=== PATIENT | female | born 1980 | race Caucasian/White ===

== ENCOUNTER 2016-07-05 10:55 | Emergency (ER) | payer OTHER ==
[~2016-07-05 10:55] MED LIST: ACID REDUCER150 MG PO; BYETTA SC; COLACE100 MG PO; GLYBURIDE5 MG PO; HYCET1 ML PO; LAMICTAL100 MG PO; LANTUS SOL100 UNITS/ SC; LOVENOX40 MG/0.4 SC; MULTIPLE VITAMIN PO; OSTEO BI-FLEX R1 TAB PO; SYNTHROID300 MCG PO; [UNRECOGNIZED DRUG - OTHER] PO
--- NOTE | 2016-07-05 13:08 | ED CLINICAL REPORT ---
Clinical Report - Physicians/Mid Levels [facility] [address] [place] [address] 07/05/2016 10:56 Patient: FLASH CRANDALL Time Seen: 12:04; initial patient contact. Arrived- By private vehicle. Historian- patient. HISTORY OF PRESENT ILLNESS Chief Complaint: BACK PAIN. It is described as being in the area of the left lower lumbar spine, lower lumbar spine and right lower lumbar spine. Onset- about 3 weeks ago. Similar symptoms previously: Several times. Recent medical care: Not recently seen/assessed. REVIEW OF SYSTEMS No fever, chills, abdominal pain, numbness or weakness. She has had back pain. No difficulty walking. All systems otherwise negative, except as recorded above. PAST HISTORY Myofascial Strain. Fall. Contusion. Cervical Strain. Tetanus Status. Lumbar Strain. LNMP - Last Normal Menstrual Period. CHAND. Bipolar Disorder. Hypothyroidism. Back Pain. Diabetes Mellitus. --11:37 Roberto Burgos R.N. ADDITIONAL SURGERIES: Carpal Tunnel Surgery. . Gallbladder Surgery. Tonsillectomy. Medications: PROzac Oral. Ranitidine HCl Oral. GlyBURIDE Oral. Byetta 10 MCG Pen Subcutaneous. Insulin levamir 15units at night . LamoTRIgine Oral 400mg am, 200 mg pm , daily. MetFORMIN HCl Oral 1000mg, 2x a day. Synthroid Oral 275mcg, daily. Vits. Allergies: Oxycodone. SOCIAL HISTORY Smoker - current status unknown. Occasional alcohol use. History of drug use: marijuana. ADDITIONAL NOTES The nursing notes have been reviewed with agreement regarding the chief complaint, PMH and patient medications and allergies. PHYSICAL EXAM Vital Signs: 07/05/2016 11:34 BP: 139/72. HR: 86. RR: 18. O2 saturation: 99%. Temp: 98.2 F. Have been reviewed as normal. Appearance: Alert. No acute distress. Back: Mild muscle spasm of the right and left posterior back. Mild soft tissue tenderness in the right upper, mid and lower and left upper, mid and lower lumbar area. Limited ROM in the back- in the lumbar spine: decreased flexion and extension. No vertebral point tenderness or CVA tenderness. Neuro: Oriented X 3. Mood/affect normal. No motor deficit. No sensory deficit. Straight leg raising: negative on the right and negative on the left. Reflexes normal. PROGRESS AND PROCEDURES Course of Care: 07/05/2016 11:34 BP: 139/72. HR: 86. RR: 18. O2 saturation: 99%. Temp: 98.2 F. Vital Signs: have been reviewed as normal. Disposition: Discharged home in good and improved condition. Condition: good. CLINICAL IMPRESSION Acute lumbar strain. INSTRUCTIONS Your Current Medications: CONTINUE TAKING THE FOLLOWING MEDICATIONS: Byetta 10 MCG Pen Subcutaneous. GlyBURIDE Oral. Insulin levamir 15units at night *. LamoTRIgine Oral : 400mg am, 200 mg pm daily. MetFORMIN HCl Oral : 1000mg 2x a day. PROzac Oral. Ranitidine HCl Oral. Synthroid Oral : 275mcg daily. Vits*. Prescription Medications: Baclofen 20 mg: take 1 orally every 8 hours. Dispense thirty (30). No refills. Diclofenac 50 mg tablets: take 1 tablet orally every 8 hours as needed for pain or stiffness. Dispense twenty (20). No refill. Follow-up: Follow up with your doctor in about three days. Call for an appointment. Screening today revealed the patient's blood pressure to be in the pre-hypertensive range. The patient should follow up with a primary care provider for blood pressure management. (Electronically signed by Guy Crandall Dr. 07/05/2016 22:07)
--- NOTE | 2016-07-05 13:08 | ED ORDER SUMMARY ---
..... Patient: ERICA CRANDALLBRII Goldstein OrderSheet [facility] VisitID: [id number] [address] [place] [address] 36y, F Registration Date/Time: 07/05/2016 ORDER SHEET Weight: 199.5 kg (stated) Allergies: Oxycodone GENERAL ORDERS: MEDICATION ORDERS: Toradol IM 60 mg (NOW) (12:36 07/05/2016 Julius Lozoya) (13:27 LWhalen R.N.) IV FLUIDS: ORDER SHEET NOTES: [Electronically signed by Tara Gauthier (13:29 07/05/2016)] [Electronically signed by Guy Crandall Dr. (22:07 07/05/2016)] [Electronically locked/signed by Tara Gauthier (13:29 07/05/2016)]
--- NOTE | 2016-07-05 13:08 | ED NURSING NOTES ---
Clinical Report - Nurses [facility] [address] [place] [address] 07/05/2016 10:56 Patient: FLASH CRANDALL TRIAGE Triage time 11:34 Jul 05 2016. Acuity: LEVEL 3. Chief Complaint: BACK PAIN. FAUSTINA COMA SCORE: Faustina Coma Scale: 15- eyes open spontaneously (4); best verbal response- oriented x 4 (5); best motor response- obeys commands (6). --11:41 Roberto Burgos R.N. 11:34 07/05/16. BP: 139/72. HR: 86. RR: 18. O2 saturation: 99%. Temp: 98.2 F. Pain level now 03/25. --11:41 Roberto Burgos R.N. Weight: 199.5 kg stated. Height/Length: 67 inches Per Patient. BMI: 69. --11:39 Roberto Burgos R.N. Medications Insulin levamir 15units at night . LamoTRIgine Oral 400mg am, 200 mg pm , daily. MetFORMIN HCl Oral 1000mg, 2x a day. Synthroid Oral 275mcg, daily. Vits. --11:36 Roberto Burgos R.N. Byetta 10 MCG Pen Subcutaneous. --11:36 Roberto Burgos R.N. GlyBURIDE Oral. --11:36 Roberto Burgos R.N. Ranitidine HCl Oral. --11:37 Roberto Burgos R.N. PROzac Oral. --11:41 Roberto Burgos R.N. Allergies Oxycodone. --11:37 Roberto Burgos R.N. History Arrived by private vehicle. Historian: patient. Accompanied by family. Primary physician (Radha Dominique). Onset. (2 weeks ago). She has had mild trouble walking. No history of recent trauma. No numbness, weakness, tingling, fever or extremity pain. 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 (excedrine, midol, aspertaine with lidocaine). PAST MEDICAL HX: Tetanus status: up-to-date. SOCIAL HX: Smoker- current status unknown. Occasional alcohol use; consumes one glass of wine. History of drug use: marijuana. SELF HARM ASSESSMENT: A self harm assessment was performed. The patient answered "no" to the question "Have you recently felt down, depressed, or hopeless?" and "Do you have thoughts of harming or killing yourself?". FALL RISK ASSESSMENT: Fall risk assessment completed. No fall risk identified. NUTRITIONAL RISK ASSESSMENT: The nutritional risk assessment revealed no deficiencies. FUNCTIONAL ASSESSMENT: Functional assessment: no impairments noted. LEARNING NEEDS ASSESSMENT: The learning needs assessment revealed no barriers. ABUSE ASSESSMENT: Abuse assessment: (yes) The patient was asked "Do you feel safe in your home?". SKIN INTEGRITY ASSESSMENT: Skin integrity risk assessment completed. No skin integrity risk identified. --11:41 Roberto Burgos R.N. PROBLEMS: Myofascial Strain. Fall. Contusion. Cervical Strain. Tetanus Status. Lumbar Strain. LNMP - Last Normal Menstrual Period. CHAND. Bipolar Disorder. Hypothyroidism. Back Pain. Diabetes Mellitus. --11:37 Roberto Burgos R.N. ADDITIONAL SURGERIES: Carpal Tunnel Surgery. . Gallbladder Surgery. Tonsillectomy. --11:37 Roberto Burgos R.N. Interventions ID and allergy band on patient. --11:41 Roberto Burgos R.N. PHYSICAL ASSESSMENT Ambulatory to room. GENERAL / NEURO / PSYCH: Alert. Oriented X 4. Appears in pain. RESPIRATORY: Respirations not labored. Chest nontender. Breath sounds within normal limits. CVS: Normal heart rate and rhythm. Capillary refill less than 2 seconds. GI / : Abdomen soft and nontender. Bowel sounds within normal limits. EXTREMITIES: Sensation intact in extremities. ROM of extremities within normal limits. ( States limited ROM r/t pain). BACK: Normal inspection of the neck and back. ROM of neck and back within normal limits. --11:42 Roberto Burgos R.N. NURSING PROGRESS NOTES The plan of care for this patient has been created. Monitoring of patient in place. Cold pack applied. Head of bed elevated (90). Reassurance given. Call light placed in reach. Side rails up. Bed placed in lowest position. Brakes of bed on. --11:42 Roberto Burgos R.N. 13:00 07/05/2016 Toradol (Ketorolac Tromethamine) IM 60 mg given. Given in the right gluteus dana. Allergies verified and confirmed 5 rights. --13:27 Roberto Burgos R.N. DISPOSITION / DISCHARGE Departure time: 1330. No learning barriers present. Discharge instructions provided and reviewed with the patient. Reviewed medication(s). Patient and spouse verbalized understanding. Written instructions provided in Bulgarian. The patient was discharged by the physician. She was discharged home and accompanied by spouse. She left the Emergency Department ambulatory and via private vehicle. Spouse driving. --13:29 Tara Gauthier. Locked/Released at 07/05/2016 13:29 by Tara Gauthier,
--- NOTE | 2016-07-05 13:08 | ED ORDER SUMMARY ---
..... Patient: ERICA CRANDALLBRII Goldstein OrderSheet [facility] VisitID: [id number] [address] [place] [address] 36y, F Registration Date/Time: 07/05/2016 ORDER SHEET Weight: 199.5 kg (stated) Allergies: Oxycodone GENERAL ORDERS: MEDICATION ORDERS: Toradol IM 60 mg (NOW) (12:36 07/05/2016 Julius Lozoya) (13:27 LWhalen R.N.) IV FLUIDS: ORDER SHEET NOTES: [Electronically signed by Tara Gauthier (13:29 07/05/2016)] [Electronically signed by Guy Crandall Dr. (22:07 07/05/2016)] [Electronically locked/signed by Tara Gauthier (13:29 07/05/2016)]
--- NOTE | 2016-07-05 13:08 | ED NURSING NOTES ---
Clinical Report - Nurses [facility] [address] [place] [address] 07/05/2016 10:56 Patient: FLASH CRANDALL TRIAGE Triage time 11:34 Jul 05 2016. Acuity: LEVEL 3. Chief Complaint: BACK PAIN. FAUSTINA COMA SCORE: Faustina Coma Scale: 15- eyes open spontaneously (4); best verbal response- oriented x 4 (5); best motor response- obeys commands (6). --11:41 Roberto Burgos R.N. 11:34 07/05/16. BP: 139/72. HR: 86. RR: 18. O2 saturation: 99%. Temp: 98.2 F. Pain level now 03/25. --11:41 Roberto Burgos R.N. Weight: 199.5 kg stated. Height/Length: 67 inches Per Patient. BMI: 69. --11:39 Roberto Burgos R.N. Medications Insulin levamir 15units at night . LamoTRIgine Oral 400mg am, 200 mg pm , daily. MetFORMIN HCl Oral 1000mg, 2x a day. Synthroid Oral 275mcg, daily. Vits. --11:36 Roberto Burgos R.N. Byetta 10 MCG Pen Subcutaneous. --11:36 Roberto Burgos R.N. GlyBURIDE Oral. --11:36 Roberto Burgos R.N. Ranitidine HCl Oral. --11:37 Roberto Burgos R.N. PROzac Oral. --11:41 Roberto Burgos R.N. Allergies Oxycodone. --11:37 Roberto Burgos R.N. History Arrived by private vehicle. Historian: patient. Accompanied by family. Primary physician (Radha Dominique). Onset. (2 weeks ago). She has had mild trouble walking. No history of recent trauma. No numbness, weakness, tingling, fever or extremity pain. 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 (excedrine, midol, aspertaine with lidocaine). PAST MEDICAL HX: Tetanus status: up-to-date. SOCIAL HX: Smoker- current status unknown. Occasional alcohol use; consumes one glass of wine. History of drug use: marijuana. SELF HARM ASSESSMENT: A self harm assessment was performed. The patient answered "no" to the question "Have you recently felt down, depressed, or hopeless?" and "Do you have thoughts of harming or killing yourself?". FALL RISK ASSESSMENT: Fall risk assessment completed. No fall risk identified. NUTRITIONAL RISK ASSESSMENT: The nutritional risk assessment revealed no deficiencies. FUNCTIONAL ASSESSMENT: Functional assessment: no impairments noted. LEARNING NEEDS ASSESSMENT: The learning needs assessment revealed no barriers. ABUSE ASSESSMENT: Abuse assessment: (yes) The patient was asked "Do you feel safe in your home?". SKIN INTEGRITY ASSESSMENT: Skin integrity risk assessment completed. No skin integrity risk identified. --11:41 Roberto Burgos R.N. PROBLEMS: Myofascial Strain. Fall. Contusion. Cervical Strain. Tetanus Status. Lumbar Strain. LNMP - Last Normal Menstrual Period. CHAND. Bipolar Disorder. Hypothyroidism. Back Pain. Diabetes Mellitus. --11:37 Roberto Burgos R.N. ADDITIONAL SURGERIES: Carpal Tunnel Surgery. . Gallbladder Surgery. Tonsillectomy. --11:37 Roberto Burgos R.N. Interventions ID and allergy band on patient. --11:41 Roberto Burgos R.N. PHYSICAL ASSESSMENT Ambulatory to room. GENERAL / NEURO / PSYCH: Alert. Oriented X 4. Appears in pain. RESPIRATORY: Respirations not labored. Chest nontender. Breath sounds within normal limits. CVS: Normal heart rate and rhythm. Capillary refill less than 2 seconds. GI / : Abdomen soft and nontender. Bowel sounds within normal limits. EXTREMITIES: Sensation intact in extremities. ROM of extremities within normal limits. ( States limited ROM r/t pain). BACK: Normal inspection of the neck and back. ROM of neck and back within normal limits. --11:42 Roberto Burgos R.N. NURSING PROGRESS NOTES The plan of care for this patient has been created. Monitoring of patient in place. Cold pack applied. Head of bed elevated (90). Reassurance given. Call light placed in reach. Side rails up. Bed placed in lowest position. Brakes of bed on. --11:42 Roberto Burgos R.N. 13:00 07/05/2016 Toradol (Ketorolac Tromethamine) IM 60 mg given. Given in the right gluteus dana. Allergies verified and confirmed 5 rights. --13:27 Roberto Burgos R.N. DISPOSITION / DISCHARGE Departure time: 1330. No learning barriers present. Discharge instructions provided and reviewed with the patient. Reviewed medication(s). Patient and spouse verbalized understanding. Written instructions provided in Icelandic. The patient was discharged by the physician. She was discharged home and accompanied by spouse. She left the Emergency Department ambulatory and via private vehicle. Spouse driving. --13:29 Tara Gauthier. Locked/Released at 07/05/2016 13:29 by Tara Gauthier,
--- NOTE | 2016-07-05 22:07 | ED MAR SUMMARY ---
..... Medication Administration Record [facility] [address] [place] [address] Patient: FLASH CRANDALL Visit ID: [id number] 36y, F Weight: 199.5 kg Height/Length: 67 in BMI: 69 ALLERGIES: Oxycodone Given 13:00 07/05/2016 Roberto Burgos R.N. Medication Administered: TORADOL [IM] (KETOROLAC TROMETHAMINE), Dose: 60 mg IM. Medication Ordered: Toradol IM 60 mg (NOW).
--- NOTE | 2016-07-05 22:07 | ED MED RECONCILIATION SUMMARY ---
Patient: ERICA ZAMANBRII Goldstein Medication Reconciliation Report [facility] VisitID: [id number] [place] [address] 36y, F Registration Date/Time: 07/05/2016 Weight: 199.5 kg Height/Length: 67 in. BMI: 69.0 ALLERGIES: Oxycodone The patient's Home Medications are listed below: CONTINUE TAKING THE FOLLOWING MEDICATIONS: Byetta 10 MCG Pen Subcutaneous GlyBURIDE Oral Insulin levamir 15units at night LamoTRIgine Oral 400mg am, 200 mg pm , daily MetFORMIN HCl Oral 1000mg, 2x a day PROzac Oral Ranitidine HCl Oral Synthroid Oral 275mcg, daily Vits The source(s) of the original Home Medication information: Not obtained. The following Medications were given to the patient in the Emergency Department: Toradol [IM] IM 60 mg, administered: 07/05/2016 1:00:00 PM The following Medications were prescribed to the patient: Baclofen 20 mg: take 1 orally every 8 hours. Dispense thirty (30). No refills. -- Guy Zaman Dr. Diclofenac 50 mg tablets: take 1 tablet orally every 8 hours as needed for pain or stiffness. Dispense twenty (20). No refill. -- Guy Zaman Dr.
--- NOTE | 2016-07-05 22:07 | ED DISCHARGE INSTRUCTIONS ---
Patient: FLASH ZAMAN General Instructions [facility] VisitID: [id number] [place] [address] 36y, F Registration Date/Time: 07/05/2016 Acute lumbar strain. INSTRUCTIONS Your Current Medications: CONTINUE TAKING THE FOLLOWING MEDICATIONS: Byetta 10 MCG Pen Subcutaneous. GlyBURIDE Oral. Insulin levamir 15units at night *. LamoTRIgine Oral : 400mg am, 200 mg pm daily. MetFORMIN HCl Oral : 1000mg 2x a day. PROzac Oral. Ranitidine HCl Oral. Synthroid Oral : 275mcg daily. Vits*. Prescription Medications: Baclofen 20 mg: take 1 orally every 8 hours. Dispense thirty (30). No refills. Diclofenac 50 mg tablets: take 1 tablet orally every 8 hours as needed for pain or stiffness. Dispense twenty (20). No refill. Follow-up: Follow up with your doctor in about three days. Call for an appointment. Screening today revealed the patient's blood pressure to be in the pre-hypertensive range. The patient should follow up with a primary care provider for blood pressure management. ADDITIONAL INFORMATION Sciatica Sciatica ("Lumbar Radiculopathy") causes a pain that spreads from the lower back down into the buttock, hip and leg. Sometimes leg pain can occur without any back pain. Sciatica is due to irritation or pressure on a spinal nerve as it comes out of the spinal canal. This is most often due to a bulge or rupture of a nearby spinal disk (the cartilage cushion between each spinal bone), which presses on a nearby nerve. Other causes include spinal stenosis (narrowing of the spinal canal) and spasm of the pyriform muscle (a muscle in the buttocks that the sciatic nerve passes through). Sciatica may begin after a sudden twisting/bending force (such as in a car accident), or sometimes after a simple awkward movement. In either case, muscle spasm is commonly present and contributes to the pain. The diagnosis of sciatica is made from the symptoms and physical exam. Unless you had a physical injury (such as a car accident or fall), X-rays are usually not ordered for the initial evaluation of sciatica because the nerves and disks cannot be seen on an x-ray. If signs of a compressed nerve are present (for example, loss of tendon reflex or strength in the leg), an MRI (magnetic resonance imaging) scan will need to be scheduled as an outpatient. Most sciatica (80-90%) gets better with medicine, exercise, physical therapy. If symptoms continue after at least three months of medical treatment, surgery may be considered. Home Care: You may need to stay in bed the first few days. But, as soon as possible, begin sitting or walking to avoid problems with prolonged bed rest. When in bed, try to find a position of comfort. A firm mattress is best. Try lying flat on your back with pillows under your knees. You can also try lying on your side with your knees bent up towards your chest and a pillow between your knees. Avoid prolonged sitting. This puts more stress on the lower back than standing or walking. Some persons find relief with heat (hot shower, hot bath or heating pad) and massage, while others prefer cold packs (crushed or cubed ice in a plastic bag, wrapped in a towel). Try both and use the method that feels best for 20 minutes several times a day. You may use acetaminophen (Tylenol) or ibuprofen (Motrin, Advil) to control pain, unless another pain medicine was prescribed. [ NOTE: If you have chronic liver or kidney disease or ever had a stomach ulcer or GI bleeding, talk with your doctor before using these medicines.] Be aware of safe lifting methods and do not lift anything over 15 pounds until all the pain is gone. Follow Up with your doctor or this facility if your symptoms do not start to improve after one week. Physical therapy or further testing may be needed. [NOTE: If X-rays were taken, they will be reviewed by a radiologist. You will be notified of any new findings that may affect your care.] Get Prompt Medical Attention if any of the following occur: Pain becomes worse, not controlled by the prescribed medicine Weakness or numbness in one or both legs Numbness in the groin, genital area Loss of bowel or bladder control You have been given the following additional information: Back Pain W/ Sciatica (Electronically signed by Guy Zaman Dr. 07/05/2016 22:07)
--- NOTE | 2016-07-05 22:07 | ED MAR SUMMARY ---
..... Medication Administration Record [facility] [address] [place] [address] Patient: FLASH CRANDALL Visit ID: [id number] 36y, F Weight: 199.5 kg Height/Length: 67 in BMI: 69 ALLERGIES: Oxycodone Given 13:00 07/05/2016 Roberto Burgos R.N. Medication Administered: TORADOL [IM] (KETOROLAC TROMETHAMINE), Dose: 60 mg IM. Medication Ordered: Toradol IM 60 mg (NOW).
--- NOTE | 2016-07-05 22:07 | ED MED RECONCILIATION SUMMARY ---
Patient: ERICA ZAMANBRII Goldstein Medication Reconciliation Report [facility] VisitID: [id number] [place] [address] 36y, F Registration Date/Time: 07/05/2016 Weight: 199.5 kg Height/Length: 67 in. BMI: 69.0 ALLERGIES: Oxycodone The patient's Home Medications are listed below: CONTINUE TAKING THE FOLLOWING MEDICATIONS: Byetta 10 MCG Pen Subcutaneous GlyBURIDE Oral Insulin levamir 15units at night LamoTRIgine Oral 400mg am, 200 mg pm , daily MetFORMIN HCl Oral 1000mg, 2x a day PROzac Oral Ranitidine HCl Oral Synthroid Oral 275mcg, daily Vits The source(s) of the original Home Medication information: Not obtained. The following Medications were given to the patient in the Emergency Department: Toradol [IM] IM 60 mg, administered: 07/05/2016 1:00:00 PM The following Medications were prescribed to the patient: Baclofen 20 mg: take 1 orally every 8 hours. Dispense thirty (30). No refills. -- Guy Zaman Dr. Diclofenac 50 mg tablets: take 1 tablet orally every 8 hours as needed for pain or stiffness. Dispense twenty (20). No refill. -- Guy Zaman Dr.
== END 2016-07-05 13:30 | disposition home or self-care (01) ==
LOC: ED SRH 10:55
DX: S39.012A Strain of muscle, fascia and tendon of lower back, initial encounter (principal); E11.9 Type 2 diabetes mellitus without complications; E03.9 Hypothyroidism, unspecified; X58.XXXA Exposure to other specified factors, initial encounter; Y93.9 Activity, unspecified; Y92.9 Unspecified place or not applicable; Y99.9 Unspecified external cause status; Z88.5 Allergy status to narcotic agent; Z79.4 Long term (current) use of insulin; Z79.899 Other long term (current) drug therapy

== ENCOUNTER 2016-07-09 22:23 | Emergency (ER) | payer OTHER ==
--- NOTE | 2016-07-10 00:01 | ED CLINICAL REPORT ---
Clinical Report - Physicians/Mid Levels [facility] [address] [place] [address] 07/09/2016 22:23 Patient: FLASH CRANDALL Time Seen: 23:12. Arrived- By private vehicle. Historian- patient. HISTORY OF PRESENT ILLNESS Chief Complaint: BACK PAIN. It is described as being severe and in the area of the lower lumbar spine and radiating to the right thigh. Onset- about 5 days ago and it is still present. It was abrupt in onset and has been constant. No bladder dysfunction, bowel dysfunction, sensory loss or motor loss. Patient has had an injury. REVIEW OF SYSTEMS No chills, fever, calf pain, chest pain or cough. No difficulty breathing, pedal edema, palpitations, abdominal pain or constipation. No diarrhea, nausea, vomiting or urinary problems. All systems otherwise negative, except as recorded above. PAST HISTORY PCP - Maliha Dominique. Problems: Myofascial Strain. Fall. Contusion. Cervical Strain. Tetanus Status. Lumbar Strain. CHAND. Bipolar Disorder. Hypothyroidism. Back Pain. Diabetes Mellitus. Additional Surgeries: Carpal Tunnel Surgery. . Gallbladder Surgery. Tonsillectomy. Medications: Byetta 10 MCG Pen Subcutaneous. GlyBURIDE Oral. Insulin levamir 15units at night . LamoTRIgine Oral 400mg am, 200 mg pm , daily. MetFORMIN HCl Oral 1000mg, 2x a day. PROzac Oral. Ranitidine HCl Oral. Synthroid Oral 275mcg, daily. Vits. Allergies: Oxycodone.(itching). SOCIAL HISTORY Never smoker. History of occasional drug use: marijuana. No alcohol use. FAMILY HISTORY Heart disease in multiple family members, first-degree relative (mother), grandparent. multiple family members with thyroid disease. ADDITIONAL NOTES The nursing notes have been reviewed. PHYSICAL EXAM Vital Signs: Have been reviewed. Appearance: Alert. Eyes: Pupils equal, round and reactive to light. Neck: Painless ROM. CVS: Heart sounds normal. Respiratory: No respiratory distress. Breath sounds normal. Abdomen: No visible injury. Soft and nontender. Bowel sounds normal. No organomegaly. No mass. Back: Muscle spasm of the back. Limited ROM in the back. No vertebral point tenderness or CVA tenderness. Skin: Skin warm and dry. Normal skin color. Normal skin turgor. Extremities: Extremities exhibit normal ROM. Extremities nontender. No calf tenderness. PROGRESS AND PROCEDURES Course of Care: Patient is stable. Patient/family counseled. Old medical records reviewed. Disposition: Discharged. Condition: stable. CLINICAL IMPRESSION Acute right sided sciatica with low back pain. INSTRUCTIONS Apply ice for 20 minutes four times a day. Don't apply ice directly to skin and don't use while asleep. No driving or operating machinery while taking medication. No lifting greater than 5 lbs, no bending or stooping or no prolonged sitting until well. No strenuous activity. Do not work tomorrow, for one day. (you may continue with the use of diclofenac but stop the use of baclofen as discussed.). Your Current Medications: CONTINUE TAKING THE FOLLOWING MEDICATIONS: Byetta 10 MCG Pen Subcutaneous. GlyBURIDE Oral. Insulin levamir 15units at night *. LamoTRIgine Oral : 400mg am, 200 mg pm daily. MetFORMIN HCl Oral : 1000mg 2x a day. PROzac Oral. Ranitidine HCl Oral. Synthroid Oral : 275mcg daily. Vits*. Prescription Medications: Ultram 50 mg: take 1-2 orally every 6 hours as needed for pain. Dispense ten (10). No refills. Substitution is permissible. Follow-up: Follow up with your doctor tomorrow. Call for an appointment. Understanding of the discharge instructions verbalized by patient. (Electronically signed by Jean Claude Gill MD 07/16/2016 21:19)
--- NOTE | 2016-07-10 00:01 | ED NURSING NOTES ---
Clinical Report - Nurses [facility] [address] [place] [address] 07/09/2016 22:23 Patient: FLASH CRANDALL TRIAGE Triage time 22:51. Chief Complaint: BACK PAIN and (right leg pain). Alert. No acute distress. --22:57 Lyssa Sinclair R.N. 22:51 07/09/16. BP: 131/80. HR: 86. RR: 18. O2 saturation: 98% on room air. Temp: 97.9 F (oral). Garcia-Au pain scale: 6/10. --22:57 Lyssa Sinclair R.N. Weight: 199.5 kg stated. Height/Length: 67 inches Per Patient. BMI: 69. --22:57 Lyssa Sinclair R.N. Medications Byetta 10 MCG Pen Subcutaneous. GlyBURIDE Oral. Insulin levamir 15units at night . LamoTRIgine Oral 400mg am, 200 mg pm , daily. MetFORMIN HCl Oral 1000mg, 2x a day. PROzac Oral. Ranitidine HCl Oral. Synthroid Oral 275mcg, daily. Vits. --22:55 Lyssa Sinclair R.N. Allergies Oxycodone.(itching) --22:55 Lyssa Sinclair R.N. History Arrived by private vehicle. Historian: patient. Primary physician (Maliha Dominique). Onset. (about 4 days ago). No history of recent trauma. Treatment CREAM BEATER: (diflucan & Baclofen last dose 3 hours CREAM BEATER). PAST MEDICAL HX: Tetanus status: up-to-date. Immunizations: up-to-date. Last normal menstrual period was 1 week ago. No contraception. SOCIAL HX: Never smoker. Occasional alcohol use. History of occasional drug use: marijuana. FUNCTIONAL ASSESSMENT: Functional assessment: no impairments noted. --22:57 Lyssa Sinclair R.N. PROBLEMS: Myofascial Strain. Fall. Contusion. Cervical Strain. Tetanus Status. Lumbar Strain. LNMP - Last Normal Menstrual Period. CHAND. Bipolar Disorder. Hypothyroidism. Back Pain. Diabetes Mellitus. --:55 Lyssa Sinclair R.N. ADDITIONAL SURGERIES: Carpal Tunnel Surgery. . Gallbladder Surgery. Tonsillectomy. --:55 Lyssa Sinclair R.N. Interventions ID band on patient. --22:57 Lyssa Sinclair R.N. PHYSICAL ASSESSMENT Ambulatory to room. GENERAL / NEURO / PSYCH: Alert. Oriented X 4. Appears in pain. RESPIRATORY: Respirations not labored. CVS: Capillary refill less than 2 seconds. --22:58 Lyssa Sinclair R.N. NURSING PROGRESS NOTES Head of bed elevated. Two patient identifiers checked. Call light placed in reach. Side rails up x 1. Bed placed in lowest position. Brakes of bed on. --:58 Lyssa Sinclair R.N. Patient ready for evaluation- chart flagged. --22:58 Lyssa Sinclair R.N. ( pt ambulates to restroom to obtain urine sample for POC preg). --23:07 Lyssa Sinclair R.N. Urine test negative. erosion control specialist check passed. --23:12 Lyssa Sinclair R.N. DISPOSITION / DISCHARGE Condition at departure: stable. No learning barriers present. Discharge instructions provided and reviewed with the patient. Reviewed medication(s) side effects, precautions, dosing and course information. Prescription(s) given to the patient. Patient verbalized understanding. Written instructions provided in Micronesian. The patient was discharged home and accompanied by family. She left the Emergency Department ambulatory and via private vehicle. Patient driving. --00:36 Lyssa Sinclair R.N. 00:35 07/10/16. BP: deferred. HR: deferred. RR: 17 (regular and unlabored). O2 saturation: deferred. Temp: deferred. Garcia-Au pain scale: 4/10. --00:36 Lyssa Sinclair R.N. Locked/Released at 07/10/2016 0:37 by Lyssa Sinclair R.N.
--- NOTE | 2016-07-10 00:01 | ED ORDER SUMMARY ---
..... Patient: FLASH CRANDALL OrderSheet [facility] VisitID: [id number] [address] [place] [address] 36y, F Registration Date/Time: 07/09/2016 ORDER SHEET Weight: 199.5 kg (stated) Allergies: Oxycodone GENERAL ORDERS: POC - Urine hCG (23:08 07/09/2016 RCollilana R.NEnmanuel verbal order read back to Tahir BORJA) (Ack 23:08 RCollier R.N.) (0:36 RCollier R.N.) MEDICATION ORDERS: IV FLUIDS: ORDER SHEET NOTES: [Electronically signed by Lyssa Sinclair R.N. (00:37 07/10/2016)] [Electronically signed by Jean Claude Gill MD (21:19 07/16/2016)] [Electronically locked/signed by Lyssa Sinclair R.N. (00:37 07/10/2016)]
--- NOTE | 2016-07-10 00:01 | ED ORDER SUMMARY ---
..... Patient: FLASH CRANDALL OrderSheet [facility] VisitID: [id number] [address] [place] [address] 36y, F Registration Date/Time: 07/09/2016 ORDER SHEET Weight: 199.5 kg (stated) Allergies: Oxycodone GENERAL ORDERS: POC - Urine hCG (23:08 07/09/2016 RCollilana R.NEnmanuel verbal order read back to Tahir BORJA) (Ack 23:08 RCollier R.N.) (0:36 RCollier R.N.) MEDICATION ORDERS: IV FLUIDS: ORDER SHEET NOTES: [Electronically signed by Lyssa Sinclair R.N. (00:37 07/10/2016)] [Electronically signed by Jean Claude Gill MD (21:19 07/16/2016)] [Electronically locked/signed by Lyssa Sinclair R.N. (00:37 07/10/2016)]
--- NOTE | 2016-07-10 00:01 | ED NURSING NOTES ---
Clinical Report - Nurses [facility] [address] [place] [address] 07/09/2016 22:23 Patient: FLASH CRANDALL TRIAGE Triage time 22:51. Chief Complaint: BACK PAIN and (right leg pain). Alert. No acute distress. --22:57 Lyssa Sinclair R.N. 22:51 07/09/16. BP: 131/80. HR: 86. RR: 18. O2 saturation: 98% on room air. Temp: 97.9 F (oral). Garcia-Au pain scale: 6/10. --22:57 Lyssa Sinclair R.N. Weight: 199.5 kg stated. Height/Length: 67 inches Per Patient. BMI: 69. --22:57 Lyssa Sinclair R.N. Medications Byetta 10 MCG Pen Subcutaneous. GlyBURIDE Oral. Insulin levamir 15units at night . LamoTRIgine Oral 400mg am, 200 mg pm , daily. MetFORMIN HCl Oral 1000mg, 2x a day. PROzac Oral. Ranitidine HCl Oral. Synthroid Oral 275mcg, daily. Vits. --22:55 Lyssa Sinclair R.N. Allergies Oxycodone.(itching) --22:55 Lyssa Sinclair R.N. History Arrived by private vehicle. Historian: patient. Primary physician (Maliha Dominique). Onset. (about 4 days ago). No history of recent trauma. Treatment REED DIPPER: (diflucan & Baclofen last dose 3 hours REED DIPPER). PAST MEDICAL HX: Tetanus status: up-to-date. Immunizations: up-to-date. Last normal menstrual period was 1 week ago. No contraception. SOCIAL HX: Never smoker. Occasional alcohol use. History of occasional drug use: marijuana. FUNCTIONAL ASSESSMENT: Functional assessment: no impairments noted. --22:57 Lyssa Sinclair R.N. PROBLEMS: Myofascial Strain. Fall. Contusion. Cervical Strain. Tetanus Status. Lumbar Strain. LNMP - Last Normal Menstrual Period. CHAND. Bipolar Disorder. Hypothyroidism. Back Pain. Diabetes Mellitus. --:55 Lyssa Sinclair R.N. ADDITIONAL SURGERIES: Carpal Tunnel Surgery. . Gallbladder Surgery. Tonsillectomy. --:55 Lyssa Sinclair R.N. Interventions ID band on patient. --22:57 Lyssa Sinclair R.N. PHYSICAL ASSESSMENT Ambulatory to room. GENERAL / NEURO / PSYCH: Alert. Oriented X 4. Appears in pain. RESPIRATORY: Respirations not labored. CVS: Capillary refill less than 2 seconds. --22:58 Lyssa Sinclair R.N. NURSING PROGRESS NOTES Head of bed elevated. Two patient identifiers checked. Call light placed in reach. Side rails up x 1. Bed placed in lowest position. Brakes of bed on. --:58 Lyssa Sinclair R.N. Patient ready for evaluation- chart flagged. --22:58 Lyssa Sinclair R.N. ( pt ambulates to restroom to obtain urine sample for POC preg). --23:07 Lyssa Sinclair R.N. Urine test negative. tower control operator check passed. --23:12 Lyssa Sinclair R.N. DISPOSITION / DISCHARGE Condition at departure: stable. No learning barriers present. Discharge instructions provided and reviewed with the patient. Reviewed medication(s) side effects, precautions, dosing and course information. Prescription(s) given to the patient. Patient verbalized understanding. Written instructions provided in Sudanese. The patient was discharged home and accompanied by family. She left the Emergency Department ambulatory and via private vehicle. Patient driving. --00:36 Lyssa Sinclair R.N. 00:35 07/10/16. BP: deferred. HR: deferred. RR: 17 (regular and unlabored). O2 saturation: deferred. Temp: deferred. Garcia-Au pain scale: 4/10. --00:36 Lyssa Sinclair R.N. Locked/Released at 07/10/2016 0:37 by Lyssa Sinclair R.N.
--- NOTE | 2016-07-16 21:19 | ED DISCHARGE INSTRUCTIONS ---
Patient: FLASH CRANDALL General Instructions [facility] VisitID: [id number] [place] [address] 36y, F Registration Date/Time: 07/09/2016 Acute right sided sciatica with low back pain. INSTRUCTIONS Apply ice for 20 minutes four times a day. Don't apply ice directly to skin and don't use while asleep. No driving or operating machinery while taking medication. No lifting greater than 5 lbs, no bending or stooping or no prolonged sitting until well. No strenuous activity. Do not work tomorrow, for one day. (you may continue with the use of diclofenac but stop the use of baclofen as discussed.). Your Current Medications: CONTINUE TAKING THE FOLLOWING MEDICATIONS: Byetta 10 MCG Pen Subcutaneous. GlyBURIDE Oral. Insulin levamir 15units at night *. LamoTRIgine Oral : 400mg am, 200 mg pm daily. MetFORMIN HCl Oral : 1000mg 2x a day. PROzac Oral. Ranitidine HCl Oral. Synthroid Oral : 275mcg daily. Vits*. Prescription Medications: Ultram 50 mg: take 1-2 orally every 6 hours as needed for pain. Dispense ten (10). No refills. Substitution is permissible. Follow-up: Follow up with your doctor tomorrow. Call for an appointment. Understanding of the discharge instructions verbalized by patient. ADDITIONAL INFORMATION Sciatica Sciatica ("Lumbar Radiculopathy") causes a pain that spreads from the lower back down into the buttock, hip and leg. Sometimes leg pain can occur without any back pain. Sciatica is due to irritation or pressure on a spinal nerve as it comes out of the spinal canal. This is most often due to a bulge or rupture of a nearby spinal disk (the cartilage cushion between each spinal bone), which presses on a nearby nerve. Other causes include spinal stenosis (narrowing of the spinal canal) and spasm of the pyriform muscle (a muscle in the buttocks that the sciatic nerve passes through). Sciatica may begin after a sudden twisting/bending force (such as in a car accident), or sometimes after a simple awkward movement. In either case, muscle spasm is commonly present and contributes to the pain. The diagnosis of sciatica is made from the symptoms and physical exam. Unless you had a physical injury (such as a car accident or fall), X-rays are usually not ordered for the initial evaluation of sciatica because the nerves and disks cannot be seen on an x-ray. If signs of a compressed nerve are present (for example, loss of tendon reflex or strength in the leg), an MRI (magnetic resonance imaging) scan will need to be scheduled as an outpatient. Most sciatica (80-90%) gets better with medicine, exercise, physical therapy. If symptoms continue after at least three months of medical treatment, surgery may be considered. Home Care: You may need to stay in bed the first few days. But, as soon as possible, begin sitting or walking to avoid problems with prolonged bed rest. When in bed, try to find a position of comfort. A firm mattress is best. Try lying flat on your back with pillows under your knees. You can also try lying on your side with your knees bent up towards your chest and a pillow between your knees. Avoid prolonged sitting. This puts more stress on the lower back than standing or walking. Some persons find relief with heat (hot shower, hot bath or heating pad) and massage, while others prefer cold packs (crushed or cubed ice in a plastic bag, wrapped in a towel). Try both and use the method that feels best for 20 minutes several times a day. You may use acetaminophen (Tylenol) or ibuprofen (Motrin, Advil) to control pain, unless another pain medicine was prescribed. [ NOTE: If you have chronic liver or kidney disease or ever had a stomach ulcer or GI bleeding, talk with your doctor before using these medicines.] Be aware of safe lifting methods and do not lift anything over 15 pounds until all the pain is gone. Follow Up with your doctor or this facility if your symptoms do not start to improve after one week. Physical therapy or further testing may be needed. [NOTE: If X-rays were taken, they will be reviewed by a radiologist. You will be notified of any new findings that may affect your care.] Get Prompt Medical Attention if any of the following occur: Pain becomes worse, not controlled by the prescribed medicine Weakness or numbness in one or both legs Numbness in the groin, genital area Loss of bowel or bladder control Tramadol Hydrochloride Oral tablet What is this medicine? TRAMADOL (TRA ma dole) is a pain reliever. It is used to treat moderate to severe pain in adults. How should I use this medicine? Take this medicine by mouth with a full glass of water. Follow the directions on the prescription label. If the medicine upsets your stomach, take it with food or milk. Do not take more medicine than you are told to take. Talk to your animal sticker regarding the use of this medicine in children. Special care may be needed. What side effects may I notice from receiving this medicine? Side effects that you should report to your doctor or health child care education coordinator as soon as possible: allergic reactions like skin rash, itching or hives, swelling of the face, lips, or tongue breathing difficulties, wheezing confusion itching light headedness or fainting spells redness, blistering, peeling or loosening of the skin, including inside the mouth seizures Side effects that usually do not require medical attention (report to your doctor or health child care education coordinator if they continue or are bothersome): constipation dizziness drowsiness headache nausea, vomiting What may interact with this medicine? Do not take this medicine with any of the following medications: MAOIs like Carbex, Eldepryl, Marplan, Nardil, and Parnate This medicine may also interact with the following medications: alcohol or medicines that contain alcohol antihistamines benzodiazepines bupropion carbamazepine or oxcarbazepine clozapine cyclobenzaprine digoxin furazolidone linezolid medicines for depression, anxiety, or psychotic disturbances medicines for migraine headache like almotriptan, eletriptan, frovatriptan, naratriptan, rizatriptan, sumatriptan, zolmitriptan medicines for pain like pentazocine, buprenorphine, butorphanol, meperidine, nalbuphine, and propoxyphene medicines for sleep muscle relaxants naltrexone phenobarbital phenothiazines like perphenazine, thioridazine, chlorpromazine, mesoridazine, fluphenazine, prochlorperazine, promazine, and trifluoperazine procarbazine warfarin What if I miss a dose? If you miss a dose, take it as soon as you can. If it is almost time for your next dose, take only that dose. Do not take double or extra doses. Where should I keep my medicine? Keep out of the reach of children. Store at room temperature between 15 and 30 degrees C (59 and 86 degrees F). Keep container tightly closed. Throw away any unused medicine after the expiration date. What should I tell my health care provider before I take this medicine? They need to know if you have any of these conditions: brain tumor depression drug abuse or addiction head injury if you frequently drink alcohol containing drinks kidney disease or trouble passing urine liver disease lung disease, asthma, or breathing problems seizures or epilepsy suicidal thoughts, plans, or attempt; a previous suicide attempt by you or a family member an unusual or allergic reaction to tramadol, codeine, other medicines, foods, dyes, or preservatives or trying to get breast-feeding What should I watch for while using this medicine? Tell your doctor or health child care education coordinator if your pain does not go away, if it gets worse, or if you have new or a different type of pain. You may develop tolerance to the medicine. Tolerance means that you will need a higher dose of the medicine for pain relief. Tolerance is normal and is expected if you take this medicine for a long time. Do not suddenly stop taking your medicine because you may develop a severe reaction. Your body becomes used to the medicine. This does NOT mean you are addicted. Addiction is a behavior related to getting and using a drug for a non-medical reason. If you have pain, you have a medical reason to take pain medicine. Your doctor will tell you how much medicine to take. If your doctor wants you to stop the medicine, the dose will be slowly lowered over time to avoid any side effects. You may get drowsy or dizzy. Do not drive, use machinery, or do anything that needs mental alertness until you know how this medicine affects you. Do not stand or sit up quickly, especially if you are an older patient. This reduces the risk of dizzy or fainting spells. Alcohol can increase or decrease the effects of this medicine. Avoid alcoholic drinks. You may have constipation. Try to have a bowel movement at least every 2 to 3 days. If you do not have a bowel movement for 3 days, call your doctor or health child care education coordinator. Your mouth may get dry. Chewing sugarless gum or sucking hard candy, and drinking plenty of water may help. Contact your doctor if the problem does not go away or is severe. You have been given the following additional information: Back Pain W/ Sciatica Tramadol Hydrochloride Oral tablet No driving or operating machinery while taking medication. No lifting greater than 5 lbs, no bending or stooping or no prolonged sitting until well. No strenuous activity. Do not work tomorrow, for one day. (Electronically signed by Jean Claude Gill MD 07/16/2016 21:19)
--- NOTE | 2016-07-16 21:20 | ED MED RECONCILIATION SUMMARY ---
Patient: FLASH CRANDALL Medication Reconciliation Report [facility] VisitID: [id number] [address] [place] [address] 36y, F Registration Date/Time: 07/09/2016 Weight: 199.5 kg Height/Length: 67 in. BMI: 69.0 ALLERGIES: Oxycodone The patient's Home Medications are listed below: CONTINUE TAKING THE FOLLOWING MEDICATIONS: Byetta 10 MCG Pen Subcutaneous GlyBURIDE Oral Insulin levamir 15units at night LamoTRIgine Oral 400mg am, 200 mg pm , daily MetFORMIN HCl Oral 1000mg, 2x a day PROzac Oral Ranitidine HCl Oral Synthroid Oral 275mcg, daily Vits The source(s) of the original Home Medication information: Not obtained. The following Medications were given to the patient in the Emergency Department: None. The following Medications were prescribed to the patient: Ultram 50 mg: take 1-2 orally every 6 hours as needed for pain. Dispense ten (10). No refills. Substitution is permissible. -- Jean Claude Gill MD
--- NOTE | 2016-07-16 21:20 | ED MAR SUMMARY ---
..... Medication Administration Record [facility] [address] [place], [place] [id number] Patient: FLASH CRANDALL Visit ID: [id number] 36y, F Weight: 199.5 kg Height/Length: 67 in BMI: 69 ALLERGIES: Oxycodone
--- NOTE | 2016-07-16 21:20 | ED MED RECONCILIATION SUMMARY ---
Patient: FLASH CRANDALL Medication Reconciliation Report [facility] VisitID: [id number] [address] [place] [address] 36y, F Registration Date/Time: 07/09/2016 Weight: 199.5 kg Height/Length: 67 in. BMI: 69.0 ALLERGIES: Oxycodone The patient's Home Medications are listed below: CONTINUE TAKING THE FOLLOWING MEDICATIONS: Byetta 10 MCG Pen Subcutaneous GlyBURIDE Oral Insulin levamir 15units at night LamoTRIgine Oral 400mg am, 200 mg pm , daily MetFORMIN HCl Oral 1000mg, 2x a day PROzac Oral Ranitidine HCl Oral Synthroid Oral 275mcg, daily Vits The source(s) of the original Home Medication information: Not obtained. The following Medications were given to the patient in the Emergency Department: None. The following Medications were prescribed to the patient: Ultram 50 mg: take 1-2 orally every 6 hours as needed for pain. Dispense ten (10). No refills. Substitution is permissible. -- Jean Claude Gill MD
--- NOTE | 2016-07-16 21:20 | ED MAR SUMMARY ---
..... Medication Administration Record [facility] [address] [id number] Patient: FLASH CRANDALL Visit ID: [id number] 36y, F Weight: 199.5 kg Height/Length: 67 in BMI: 69 ALLERGIES: Oxycodone
== END 2016-07-10 00:35 | disposition home or self-care (01) ==
LOC: ED SRH 22:23
DX: M54.41 Lumbago with sciatica, right side (principal); E11.9 Type 2 diabetes mellitus without complications; Z79.84 Long term (current) use of oral hypoglycemic drugs; Z79.4 Long term (current) use of insulin; Z79.899 Other long term (current) drug therapy; Z88.5 Allergy status to narcotic agent

== ENCOUNTER 2016-08-22 22:47 | Emergency (ER) | payer OTHER ==
--- NOTE | 2016-08-23 03:07 | ED CLINICAL REPORT ---
Clinical Report - Physicians/Mid Levels [facility] [address] [place] [address] 08/22/2016 22:47 Patient: MICHELLE CRANDALL Time Seen: 00:41. Arrived- By private vehicle. Historian- patient. HISTORY OF PRESENT ILLNESS Chief Complaint: TENDER AREA. This started about 5 days ago and is still present. It was gradual in onset and has been constant. It is described as painful. It has been located on the right thigh. No cause has been identified. (the patient developed pain in her right thigh 5 days ago. She was seen the following day in urgent care and was started on 2 uncertain antibiotics. Since then she has felt weak and dizzy and says that it is difficult for her to stand because of this. She has had chills and sweats and measured her temperature at home and it was 102F. She was wakened from sleep tonight with difficulty breathing and came to the ER). Recent medical care: The patient was seen recently at another facility in a clinic. Seen for similar symptoms. Evaluation/treatment: antibiotic prescribed. Diagnosis: cellulitis. REVIEW OF SYSTEMS The patient has had chills and experienced sweats. She has had measured temperature of 102 F. She has had moderate difficulty breathing (since last night - it woke her from sleep). The patient has also had dyspnea on exertion. All systems otherwise negative, except as recorded above. PAST HISTORY PCP - Maliha Dominique. Problems: Sciatica. Myofascial Strain. Fall. Contusion. Cervical Strain. Lumbar Strain. CHAND. Bipolar Disorder. Hypothyroidism. Back Pain. Diabetes Mellitus. Additional Surgeries: Carpal Tunnel Surgery. . Gallbladder Surgery. Tonsillectomy. Medications: Byetta 10 MCG Pen Subcutaneous. GlyBURIDE Oral. Insulin levamir 15units at night . LamoTRIgine Oral 400mg am, 200 mg pm , daily. MetFORMIN HCl Oral 1000mg, 2x a day. PROzac Oral. Ranitidine HCl Oral. Synthroid Oral 275mcg, daily. Vits. Allergies: No Known Drug Allergy. SOCIAL HISTORY Smoker- current status unknown. No alcohol use or drug use. ADDITIONAL NOTES The nursing notes have been reviewed. PHYSICAL EXAM Vital Signs: 08/22/2016 22:54 BP: 118/58. HR: 127. RR: 24. O2 saturation: 95%. Temp: 98.7 F. Pain level now: 5/10. Appearance: Alert. She is morbidly obese. Patient in moderate distress. Eyes: Pupils equal, round and reactive to light. ENT: Pharynx normal. Neck: Neck supple. CVS: Normal heart rate and rhythm. Heart sounds normal. Respiratory: Decreased air movement. tachypnea. Abdomen: Nontender. No organomegaly. Skin: Large tender indurated area to right thigh (ecchymotic with areas of skin breakdown and crepitus). Extremities: No calf tenderness. LABS, X-RAYS, AND EKG EKG: Rate: 122. Tachycardia. Changes present when compared to prior EKG. (01 Feb 2016). The study has been independently viewed by me. Chest X-ray: No acute disease. Technique: poor inspiration. The X-rays were independently viewed by me. Laboratory Tests: UA-Culture if indicated: (BARRON: 08/23/2016 01:00) ( MsgRcvd 08/23/2016 01:22) Final results Test Result Flag Units (Reference) URINE COLOR YELLOW URINE APPEARANCE CLEAR URINE GLUCOSE NEGATIVE (NEGATIVE) URINE BILIRUBIN 1+ (NEGATIVE) URINE KETONE TRACE (NEGATIVE) URINE SPECIFIC GRAVITY >= 1.030 (1.010-1.030) URINE PH 5.0 (5.0-8.0) URINE PROTEIN 1+ (NEGATIVE) URINE UROBILINOGEN 1.0 EU/dL (0.2-1.0) URINE NITRITE NEGATIVE (NEGATIVE) URINE BLOOD NEGATIVE (NEGATIVE) URINE LEUK ESTERASE NEGATIVE (NEGATIVE) URINE RBC 0-1 rbc/hpf (0-1) URINE WBC 1-3 wbc/hpf (0-1) URINE EPITHELIAL CELLS 3-5 EPI/hpf (0-5) URINE BACTERIA MANY (4+) (NONE SEEN) URINE COMMENT CULTURE INDICATED URINE CULTURES ARE SET-UP BASED ON THE FOLLOWING CRITERIA:POSITIVE NITRITEPOSITIVE LEUKOCYTE ESTERASEGREATER THAN 10 WHITE BLOOD CELLSMODERATE (2+) OR GREATER BACTERIA Urine: (BARRON: 08/23/2016 01:00) ( MsgRcvd 08/23/2016 01:15) Final results Test Result Flag Units (Reference) URINE NEGATIVE [id number]: (BARRON: 08/23/2016 00:01) ( [facility] 08/23/2016 03:15) Final results Test Result Flag Units (Reference) D-DIMER QUANTITATIVE 1.27 H ug/mLFEU (0.27-0.52) The primary value of this quantitative assay relates toits negative predictive value (i.e. exclusion) of pulmonaryembolism/deep vein thrombosis/DIC.Elevated levels of d-dimer may also occur with:, age, cancer, inflammation, liver disease,post-op, infection, hematoma, coronary disease, peripheralarteriopathy, bleeding disorders and thrombolytic treatment.Results should be correlated with other clinical andradiological data.Testing Methodology: Latex Immunoassay Lipase: (BARRON: 08/23/2016 00:30) ( [facility] 08/23/2016 00:55) Final results Test Result Flag Units (Reference) LIPASE 435 H U/L (73-393) AMYLASE 57 U/L (25-115) Lactate, Serum: (BARRON: 08/23/2016 00:30) ( [facility] 08/23/2016 01:09) Final results Test Result Flag Units (Reference) LACTIC ACID 7.0 H mmol/L (0.4-2.0) CRITICAL RESULTS CALLEDCalled to SHERIN MarieEnmanuel 08/23/16 0108Were 2 patient identifiers used? YWas the result read back? Y [id number]: (BARRON: 08/23/2016 00:01) ( [facility] 08/23/2016 00:52) Final results Test Result Flag Units (Reference) PROCALCITONIN 32.6 H ng/mL (0-0.5) PCT Concentration: Interpretation : Risk/option for action PCT <=0.5 ng/mL : Systemic : Low risk forinfection(sepsis): progression to severeis not likely. : systemic infection.Local bacterial : CAUTION-PCT levelsinfection is : below 0.5 ng/mL do notpossible. : exclude an infection,because localizedinfections (withoutsystemic signs) may beassociated with suchlow levels. If PCT ismeasured very earlyafter a bacterialchallenge (usually <6hours), these valuesmay still be low. Inthis case PCT shouldbe re-assessed 6-24hours later. PCT >0.5 and : Systemic infection: Moderate risk for<= 2 ng/mL : (sepsis) is : progression to severepossible, but : systemic infection.other conditions : The patient should beare known to : closely monitoredelevate PCT. : both clinically andby re-assessing PCTwithin 6-24 hours. PCT > 2 ng/mL : Systemic infection: High risk for(sepsis) is likely: progression to severeunless other : systemic infection.causes are known. : PCT >= 10 ng/mL : Important systemic: High likelihood ofinflammatory : severe sepsis orresponse, almost : septic shock.exclusively due to:severe bacterial :sepsis or septic :shock. : CBC w Diff: (BARRON: 08/22/2016 23:19) ( [facility] [place] 08/22/2016 23:31) Final results Test Result Flag Units (Reference) WHITE BLOOD COUNT 14.5 H K/uL (4.5-11.5) RED BLOOD COUNT 4.07 M/uL (4.00-5.20) HEMOGLOBIN 11.3 L gm/dL (12.0-16.0) HEMATOCRIT 35.6 L % (36.0-46.0) MEAN CELL VOLUME 88 fL (80-100) MEAN CORPUSCULAR HGB 28 pg (26-34) MEAN CORPUSCULAR HGB CONC 32 g/dL (31-37) RED CELL DISTRIBUTION WIDTH 16.7 H % (11.6-14.8) PLATELET COUNT 278 K/uL (150-400) LYMPH % 9.0 L % (25-40) MONO % 4.5 % (3-14) GRANULOCYTE % 86.5 (53-90) BNP: (BARRON: 08/22/2016 23:00) ( [facility] [place] 08/23/2016 00:33) Final results Test Result Flag Units (Reference) B-TYPE NATRIURETIC PEPTIDE 242 H pg/ml (5-100) CMP: (BARRON: 08/22/2016 23:19) ( [facility] 08/22/2016 23:58) Final results Test Result Flag Units (Reference) GLUCOSE 125 H mg/dL (70-110) BUN 35 H mg/dL (7-18) CREATININE 2.9 H mg/dL (0.6-1.3) Estimated GFR 19.63 mL/min Estimated GFR- 23.79 mL/min Note: Persistent reduction over 3 months in eGFR<60 mL/min/1.73 m2 defines CKD. Patients with eGFR values>=60 mL/min/1.73 m2 may also have CKD if evidence ofpersistent proteinuria. Additional information may be foundat [email or web address].org. SODIUM 136 mmol/L (136-145) POTASSIUM 4.5 mmol/L (3.5-5.1) CHLORIDE 97 L mmol/L (98-107) CARBON DIOXIDE 21 mmol/L (21-32) CALCIUM 10.1 mg/dL (8.5-10.1) TOTAL PROTEIN 7.5 g/dL (6.4-8.2) ALBUMIN 2.5 L g/dL (3.3-5.0) BILIRUBIN, TOTAL 1.2 H mg/dL (0.0-1.0) ALKALINE PHOSPHATASE 233 H U/L (46-116) AST (SGOT) 35 U/L (15-37) ALT (SGPT) 37 U/L (12-78) . PROGRESS AND PROCEDURES Course of Care: I reviewed the case with Dr. Glass, general surgeon at [facility]. She accepts the patient in transfer. She does not want me to initiate anticoagulation at this time for the elevated d-dimer as she is planning on taking her directly to the operating room for the necrotizing fasciitis. We are unable to perform a CT here as our scanner is down and with her poor renal function, contrast use is not possible. They will evaluate the patient further for her breathing issues on her arrival there. They can consider a VQ scan there. Critical care performed (130 minutes). Time includes: direct patient care, patient reassessment, coordination of patient care, interpretation of data (laboratory data and chest xrays), review of patient's medical records, medical consultation and documentation of patient care. Discussed case with hospitalist, (Prudencio - he agrees that the patient ought to be transferred to [facility]). Reviewed test results and need for additional work-up. Consult obtained from surgery. Dr García - ezra feels that the patient ought to be transferred to [facility]. Case discussed. Phone consult only. Patient/family counseled. Old medical records reviewed. Disposition: Transferred to Located [facility]. CLINICAL IMPRESSION Diabetes. Dyspnea. Sepsis. Acute renal insufficiency. right thigh necrotizing fasciitis. (Electronically signed by Jean Claude Gill MD 08/23/2016 7:43) Addenda for MICHELLE CRANDALL VisitID: [id number] Date: 08/22/2016 08/23/2016 8:58 Name: Michelle Crandall : 1980 MR#: [id number] Ordering Provider: JEAN CLAUDE GILL Exam(s): US SOFT TISSUE ANYWHERE Date of Exam: 08/23/2016 __ PROCEDURE: US SOFT TISSUE ANYWHERE INDICATION: Proximal right medial thigh inflammation TECHNIQUE: Tellez scale ultrasound and color Doppler. COMPARISON: None. FINDINGS: There is subcutaneous edema with areas of subcutaneous gas present in the proximal medial right thigh. IMPRESSION: 1. Proximal medial right thigh subcutaneous edema and gas suggestive of a gas-forming organism and necrotizing fasciitis. (Electronically signed by Jean Claude Gill MD - 08/23/2016 8:58)
--- NOTE | 2016-08-23 03:07 | ED CLINICAL REPORT ---
Clinical Report - Physicians/Mid Levels [facility] [address] [place] [address] 08/22/2016 22:47 Patient: IMCHELLE CRANDALL Time Seen: 00:41. Arrived- By private vehicle. Historian- patient. HISTORY OF PRESENT ILLNESS Chief Complaint: TENDER AREA. This started about 5 days ago and is still present. It was gradual in onset and has been constant. It is described as painful. It has been located on the right thigh. No cause has been identified. (the patient developed pain in her right thigh 5 days ago. She was seen the following day in urgent care and was started on 2 uncertain antibiotics. Since then she has felt weak and dizzy and says that it is difficult for her to stand because of this. She has had chills and sweats and measured her temperature at home and it was 102F. She was wakened from sleep tonight with difficulty breathing and came to the ER). Recent medical care: The patient was seen recently at another facility in a clinic. Seen for similar symptoms. Evaluation/treatment: antibiotic prescribed. Diagnosis: cellulitis. REVIEW OF SYSTEMS The patient has had chills and experienced sweats. She has had measured temperature of 102 F. She has had moderate difficulty breathing (since last night - it woke her from sleep). The patient has also had dyspnea on exertion. All systems otherwise negative, except as recorded above. PAST HISTORY PCP - Maliha Dominique. Problems: Sciatica. Myofascial Strain. Fall. Contusion. Cervical Strain. Lumbar Strain. CHAND. Bipolar Disorder. Hypothyroidism. Back Pain. Diabetes Mellitus. Additional Surgeries: Carpal Tunnel Surgery. . Gallbladder Surgery. Tonsillectomy. Medications: Byetta 10 MCG Pen Subcutaneous. GlyBURIDE Oral. Insulin levamir 15units at night . LamoTRIgine Oral 400mg am, 200 mg pm , daily. MetFORMIN HCl Oral 1000mg, 2x a day. PROzac Oral. Ranitidine HCl Oral. Synthroid Oral 275mcg, daily. Vits. Allergies: No Known Drug Allergy. SOCIAL HISTORY Smoker- current status unknown. No alcohol use or drug use. ADDITIONAL NOTES The nursing notes have been reviewed. PHYSICAL EXAM Vital Signs: 08/22/2016 22:54 BP: 118/58. HR: 127. RR: 24. O2 saturation: 95%. Temp: 98.7 F. Pain level now: 5/10. Appearance: Alert. She is morbidly obese. Patient in moderate distress. Eyes: Pupils equal, round and reactive to light. ENT: Pharynx normal. Neck: Neck supple. CVS: Normal heart rate and rhythm. Heart sounds normal. Respiratory: Decreased air movement. tachypnea. Abdomen: Nontender. No organomegaly. Skin: Large tender indurated area to right thigh (ecchymotic with areas of skin breakdown and crepitus). Extremities: No calf tenderness. LABS, X-RAYS, AND EKG EKG: Rate: 122. Tachycardia. Changes present when compared to prior EKG. (01 Feb 2016). The study has been independently viewed by me. Chest X-ray: No acute disease. Technique: poor inspiration. The X-rays were independently viewed by me. Laboratory Tests: UA-Culture if indicated: (BARRON: 08/23/2016 01:00) ( MsgRcvd 08/23/2016 01:22) Final results Test Result Flag Units (Reference) URINE COLOR YELLOW URINE APPEARANCE CLEAR URINE GLUCOSE NEGATIVE (NEGATIVE) URINE BILIRUBIN 1+ (NEGATIVE) URINE KETONE TRACE (NEGATIVE) URINE SPECIFIC GRAVITY >= 1.030 (1.010-1.030) URINE PH 5.0 (5.0-8.0) URINE PROTEIN 1+ (NEGATIVE) URINE UROBILINOGEN 1.0 EU/dL (0.2-1.0) URINE NITRITE NEGATIVE (NEGATIVE) URINE BLOOD NEGATIVE (NEGATIVE) URINE LEUK ESTERASE NEGATIVE (NEGATIVE) URINE RBC 0-1 rbc/hpf (0-1) URINE WBC 1-3 wbc/hpf (0-1) URINE EPITHELIAL CELLS 3-5 EPI/hpf (0-5) URINE BACTERIA MANY (4+) (NONE SEEN) URINE COMMENT CULTURE INDICATED URINE CULTURES ARE SET-UP BASED ON THE FOLLOWING CRITERIA:POSITIVE NITRITEPOSITIVE LEUKOCYTE ESTERASEGREATER THAN 10 WHITE BLOOD CELLSMODERATE (2+) OR GREATER BACTERIA Urine: (BARRON: 08/23/2016 01:00) ( MsgRcvd 08/23/2016 01:15) Final results Test Result Flag Units (Reference) URINE NEGATIVE [id number]: (BARRON: 08/23/2016 00:01) ( [facility] 08/23/2016 03:15) Final results Test Result Flag Units (Reference) D-DIMER QUANTITATIVE 1.27 H ug/mLFEU (0.27-0.52) The primary value of this quantitative assay relates toits negative predictive value (i.e. exclusion) of pulmonaryembolism/deep vein thrombosis/DIC.Elevated levels of d-dimer may also occur with:, age, cancer, inflammation, liver disease,post-op, infection, hematoma, coronary disease, peripheralarteriopathy, bleeding disorders and thrombolytic treatment.Results should be correlated with other clinical andradiological data.Testing Methodology: Latex Immunoassay Lipase: (BARRON: 08/23/2016 00:30) ( [facility] 08/23/2016 00:55) Final results Test Result Flag Units (Reference) LIPASE 435 H U/L (73-393) AMYLASE 57 U/L (25-115) Lactate, Serum: (BARRON: 08/23/2016 00:30) ( [facility] 08/23/2016 01:09) Final results Test Result Flag Units (Reference) LACTIC ACID 7.0 H mmol/L (0.4-2.0) CRITICAL RESULTS CALLEDCalled to SHERIN MarieEnmanuel 08/23/16 0108Were 2 patient identifiers used? YWas the result read back? Y [id number]: (BARRON: 08/23/2016 00:01) ( [facility] 08/23/2016 00:52) Final results Test Result Flag Units (Reference) PROCALCITONIN 32.6 H ng/mL (0-0.5) PCT Concentration: Interpretation : Risk/option for action PCT <=0.5 ng/mL : Systemic : Low risk forinfection(sepsis): progression to severeis not likely. : systemic infection.Local bacterial : CAUTION-PCT levelsinfection is : below 0.5 ng/mL do notpossible. : exclude an infection,because localizedinfections (withoutsystemic signs) may beassociated with suchlow levels. If PCT ismeasured very earlyafter a bacterialchallenge (usually <6hours), these valuesmay still be low. Inthis case PCT shouldbe re-assessed 6-24hours later. PCT >0.5 and : Systemic infection: Moderate risk for<= 2 ng/mL : (sepsis) is : progression to severepossible, but : systemic infection.other conditions : The patient should beare known to : closely monitoredelevate PCT. : both clinically andby re-assessing PCTwithin 6-24 hours. PCT > 2 ng/mL : Systemic infection: High risk for(sepsis) is likely: progression to severeunless other : systemic infection.causes are known. : PCT >= 10 ng/mL : Important systemic: High likelihood ofinflammatory : severe sepsis orresponse, almost : septic shock.exclusively due to:severe bacterial :sepsis or septic :shock. : CBC w Diff: (BARRON: 08/22/2016 23:19) ( [facility] [place] 08/22/2016 23:31) Final results Test Result Flag Units (Reference) WHITE BLOOD COUNT 14.5 H K/uL (4.5-11.5) RED BLOOD COUNT 4.07 M/uL (4.00-5.20) HEMOGLOBIN 11.3 L gm/dL (12.0-16.0) HEMATOCRIT 35.6 L % (36.0-46.0) MEAN CELL VOLUME 88 fL (80-100) MEAN CORPUSCULAR HGB 28 pg (26-34) MEAN CORPUSCULAR HGB CONC 32 g/dL (31-37) RED CELL DISTRIBUTION WIDTH 16.7 H % (11.6-14.8) PLATELET COUNT 278 K/uL (150-400) LYMPH % 9.0 L % (25-40) MONO % 4.5 % (3-14) GRANULOCYTE % 86.5 (53-90) BNP: (BARRON: 08/22/2016 23:00) ( [facility] [place] 08/23/2016 00:33) Final results Test Result Flag Units (Reference) B-TYPE NATRIURETIC PEPTIDE 242 H pg/ml (5-100) CMP: (BARRON: 08/22/2016 23:19) ( [facility] 08/22/2016 23:58) Final results Test Result Flag Units (Reference) GLUCOSE 125 H mg/dL (70-110) BUN 35 H mg/dL (7-18) CREATININE 2.9 H mg/dL (0.6-1.3) Estimated GFR 19.63 mL/min Estimated GFR- 23.79 mL/min Note: Persistent reduction over 3 months in eGFR<60 mL/min/1.73 m2 defines CKD. Patients with eGFR values>=60 mL/min/1.73 m2 may also have CKD if evidence ofpersistent proteinuria. Additional information may be foundat [email or web address].org. SODIUM 136 mmol/L (136-145) POTASSIUM 4.5 mmol/L (3.5-5.1) CHLORIDE 97 L mmol/L (98-107) CARBON DIOXIDE 21 mmol/L (21-32) CALCIUM 10.1 mg/dL (8.5-10.1) TOTAL PROTEIN 7.5 g/dL (6.4-8.2) ALBUMIN 2.5 L g/dL (3.3-5.0) BILIRUBIN, TOTAL 1.2 H mg/dL (0.0-1.0) ALKALINE PHOSPHATASE 233 H U/L (46-116) AST (SGOT) 35 U/L (15-37) ALT (SGPT) 37 U/L (12-78) . PROGRESS AND PROCEDURES Course of Care: I reviewed the case with Dr. Glass, general surgeon at [facility]. She accepts the patient in transfer. She does not want me to initiate anticoagulation at this time for the elevated d-dimer as she is planning on taking her directly to the operating room for the necrotizing fasciitis. We are unable to perform a CT here as our scanner is down and with her poor renal function, contrast use is not possible. They will evaluate the patient further for her breathing issues on her arrival there. They can consider a VQ scan there. Critical care performed (130 minutes). Time includes: direct patient care, patient reassessment, coordination of patient care, interpretation of data (laboratory data and chest xrays), review of patient's medical records, medical consultation and documentation of patient care. Discussed case with hospitalist, (Prudencio - he agrees that the patient ought to be transferred to [facility]). Reviewed test results and need for additional work-up. Consult obtained from surgery. Dr García - ezra feels that the patient ought to be transferred to [facility]. Case discussed. Phone consult only. Patient/family counseled. Old medical records reviewed. Disposition: [facility]red [facility]. CLINICAL IMPRESSION Diabetes. Dyspnea. Sepsis. Acute renal insufficiency. right thigh necrotizing fasciitis. (Electronically signed by Jean Claude Gill MD 08/23/2016 7:43) Addenda for MICHELLE CRANDALL VisitID: [id number] Date: 08/22/2016 08/23/2016 8:58 Name: Michelle Crandall : 1980 MR#: [id number] Ordering Provider: JEAN CLAUDE GILL Exam(s): US SOFT TISSUE ANYWHERE Date of Exam: 08/23/2016 __ PROCEDURE: US SOFT TISSUE ANYWHERE INDICATION: Proximal right medial thigh inflammation TECHNIQUE: Tellez scale ultrasound and color Doppler. COMPARISON: None. FINDINGS: There is subcutaneous edema with areas of subcutaneous gas present in the proximal medial right thigh. IMPRESSION: 1. Proximal medial right thigh subcutaneous edema and gas suggestive of a gas-forming organism and necrotizing fasciitis. (Electronically signed by Jean Claude Gill MD - 08/23/2016 8:58)
--- NOTE | 2016-08-23 03:07 | ED ORDER SUMMARY ---
..... Patient: FLASH CRANDALL OrderSheet [facility] VisitID: [id number] [address] [place] [address] 36y, F Registration Date/Time: 08/22/2016 ORDER SHEET Weight: 195.0 kg (stated) Allergies: No Known Drug Allergy GENERAL ORDERS: Central Lab Technician (Continuous) (Dizziness when ambulating) (23:08/22/2016 JRomanelli R.N. verbal order read back to Rona BORJA) (23:45 JRomanelli R.N.) CMP Urgent (:08/22/2016 JRomanelli R.N. verbal order read back to Rona BORJA) (Ack 23:08 CHagerty ER Transfer Controller) (0:09 CFalkner R.N.) CBC w Diff Urgent (:08/22/2016 JRomanelli R.N. verbal order read back to Rona BORJA) (Ack 23:08 CHagerty ER Transfer Controller) (0:09 CFalkner R.N.) UA-Culture if indicated Urgent (23:08/22/2016 JRomanelli R.N. verbal order read back to Rona BORJA) (Ack 23:08 CHagerty ER Transfer Controller) (1:19 EInderbitzen R.N.) Oxygen (2 L/min) (NC) (:08/22/2016 JRomanelli R.N. verbal order read back to Rona BORJA) (23:45 JRomanelli R.N.) Pulse oximeter (:08/22/2016 JRomanelli R.N. verbal order read back to Rona BORJA) (23:45 JRomanelli R.N.) EKG - ER Stat (:08/22/2016 JRomanelli R.N. verbal order read back to Rona BORJA) (Ack 23:09 CHagerty ER Transfer Controller) (23:45 JRomanelli R.N.) POC Glucose (:08/22/2016 JRomanelli R.N. verbal order read back to Rona BORJA) (Ack 23:55 CHagerty ER Transfer Controller) (0:09 CFalkner R.N.) Old Records (23:06 08/22/2016 JRomanelli R.N. verbal order read back to Rona BORJA) (Ack 23:55 CHagerty ER Transfer Controller) (3:17 CHagerty ER Transfer Controller) Urine Urgent (23:41 08/22/2016 Tahir BORJA) (Ack 23:55 Rufus ER Transfer Controller) (1:19 EInderbitzen R.N.) BNP Urgent (23:44 08/22/2016 JRomanelli R.N. verbal order read back to Tahir BORJA) (Ack 23:55 Sophieerty ER Transfer Controller) (0:09 CFalkner R.N.) Chest 1V Urgent (00:08 08/23/2016 Tahir BORJA) (Ack 0:16 Rufus ER Transfer Controller) (0:29 Ronald) PCT (Procalcitonin) Urgent (00:19 08/23/2016 EInderbitzen R.N. verbal order read back to Tahir BORJA) (Ack 0:23 Rufus ER Transfer Controller) (0:40 EInderbitzen R.N.) Lactate, Serum Urgent (00:19 08/23/2016 EInderbitzen R.N. verbal order read back to Tahir BORJA) (Ack 0:23 Rufus ER Transfer Controller) (0:40 EInderbitzen R.N.) Amylase Urgent (00:34 08/23/2016 Tahir BORJA) (0:40 EInderbitzen R.N.) Lipase Urgent (00:34 08/23/2016 Tahir BORJA) (0:40 EInderbitzen R.N.) Blood Culture (No) (N/A) Urgent (00:35 08/23/2016 Tahir BORJA) (0:40 EInderbitzen R.N.) US Soft Tissue Anywhere (gangrene) Urgent (00:43 08/23/2016 Tahir BORJA) (Ack 0:45 Rufus ER Transfer Controller) (2:44 Ronald) D-Dimer Urgent (02:55 08/23/2016 Tahir BORJA) (3:10 EInderbitzen R.N.) (3:11 CHagmarcos ER Transfer Controller) MEDICATION ORDERS: Unasyn IV 3 gm/100mL (NOW) (02:40 08/23/2016 Tahir BORJA) (3:37 EInderbitzen R.N.) IV FLUIDS: IV Saline Lock (23:06 08/22/2016 Jeannie Leyva.NEnmanuel verbal order read back to Rona BORJA) (0:40 EInderbitzen R.N.) IV Saline Lock (00:37 08/23/2016 EInderbitzen R.N. per protocol) (0:38 EInderbitzen R.N.) IV NS : initial bolus 1000 mL (1000 mL/hr), then 1000 mL/hr for X2 (NOW); Urgent (00:42 08/23/2016 Tahir BORJA) (1:20 EInderbitzen R.N.) Vancomycin IV 2 gm/500 mL (NOW) (01:10 08/23/2016 Tahir BORJA) (1:21 EInderbitzen R.N.) Clindamycin IV 900 mg/50mL (NOW) (02:40 08/23/2016 Tahir BORJA) (3:18 EInderbitzen R.N.) ORDER SHEET NOTES: [Electronically signed by Jean Claude Gill MD (07:43 08/23/2016)] [Electronically signed by Tara Goldberg R.N. (23:56 08/23/2016)] [Electronically locked/signed by Tara Goldberg R.N. (23:56 08/23/2016)]
--- NOTE | 2016-08-23 03:07 | ED NURSING NOTES ---
Clinical Report - [facility] [address] [place] [address] 08/22/2016 22:47 Patient: FLASH CRANDALL TRIAGE Triage time 22:50- Aug 22 2016. Acuity: LEVEL 3. Chief Complaint: SHORTNESS OF BREATH and DIFFICULTY BREATHING. Alert. SAURABH COMA SCORE: [place] Coma Scale: 15- eyes open spontaneously (4); best verbal response- oriented x 4 (5); best motor response- obeys commands (6). --23:43 Sam Pierson R.N. 22:54 08/22/16. BP: 118/58. HR: 127. RR: 24. O2 saturation: 95%. Temp: 98.7 F (oral). Pain level now: 5/10. Additional comments: (R) Thigh. --23:43 Sam Pierson R.N. Weight: 195 kg stated. Height/Length: 67 inches Per Patient. BMI: 67.4. --22:56 Sam Pierson R.N. Medications Byetta 10 MCG Pen Subcutaneous. GlyBURIDE Oral. Insulin levamir 15units at night . LamoTRIgine Oral 400mg am, 200 mg pm , daily. MetFORMIN HCl Oral 1000mg, 2x a day. PROzac Oral. Ranitidine HCl Oral. Synthroid Oral 275mcg, daily. Vits. --22:59 Sam Pierson R.N. Allergies No Known Drug Allergy. --23:00 Sam Pierson R.N. History Arrived by private vehicle. Historian: patient. Accompanied by family. Primary physician (Trip Garcia). ( SOB while sleeping, worsened by rolling over in bed. Returns every time she moves.). This started today. Onset. (about about 4 hours ago). She has had fever (about 2 days ago--102.8 (o)). She has had a cough. 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 PAST MEDICAL HX: Immunizations: up-to-date. Last normal menstrual period was 4 weeks ago. Denies current . SOCIAL HX: Former smoker, end date 2014. No alcohol use or drug use. No infectious disease exposure. ABUSE ASSESSMENT: No report of abuse. FALL RISK ASSESSMENT: Fall risk assessment completed. No fall risk identified. NUTRITIONAL RISK ASSESSMENT: The nutritional risk assessment revealed no deficiencies. FUNCTIONAL ASSESSMENT: Functional assessment: no impairments noted. LEARNING NEEDS ASSESSMENT: The learning needs assessment revealed no barriers. SKIN INTEGRITY ASSESSMENT: Skin integrity risk assessment completed. No skin integrity risk identified. --23:43 Sam Pierson R.N. PROBLEMS: Sciatica. Myofascial Strain. Contusion. Cervical Strain. Bipolar Disorder. Hypothyroidism. Diabetes Mellitus. --23:02 Sam Pierson R.N. ADDITIONAL SURGERIES: Carpal Tunnel Surgery. . Gallbladder Surgery. Tonsillectomy. --23:02 Sam Pierson R.N. Interventions ID band on patient. To treatment room. --23:43 Sam Pierson R.N. PHYSICAL ASSESSMENT To room via stretcher. GENERAL / NEURO / PSYCH: Alert. Oriented X 4. HEENT: Mucous membranes are pink. RESPIRATORY: Mild respiratory distress. CVS: Capillary refill less than 2 seconds. GI / : Abdomen soft. Bowel sounds within normal limits. ( obese). SKIN: Skin is warm and dry. Normal skin turgor. --23:04 Sam Pierson R.N. 00:15 08/23/16. SKIN: Skin is cool and diaphoretic. ( right upper leg with heat, redness, 3 open blisters, foul ammonia odor from wounds.). --03:42 Tara Goldberg R.N. NURSING PROGRESS NOTES groundwater monitoring technician placed on patient; threat monitoring analyst- Lead II and V1. Patient gowned. Reassurance given. Patient identifiers checked. Call light placed in reach. Side rails up. Patient ready for evaluation- chart flagged and ED physician notified. --23:04 Sam Pierson R.N. EKG time: (23:15 PM). EKG was performed by a tech and shown to the ED physician. --23:44 Carmen Sullivan ( Blood Glucose 136). --23:56 Carmen Sullivan <<STRICKEN ENTRY-- 23:05 08/22/2016 Site #1 started via IV in the right antecubital space with an 20g angiocath, with aseptic technique and good blood return; one attempt. Blood drawn: rainbow set. Labeled in the presence of the patient and sent to the lab. Saline lock flushed with 10 mL saline. --00:09 Lyssa Sinclair R.N. --END STRIKE>> Correction. --00:10 Lyssa Sinclair R.N. 23:45 08/22/2016 Site #1 started via IV in the right antecubital space with an 20g angiocath, with aseptic technique and good blood return; one attempt. Blood drawn: rainbow set. Labeled in the presence of the patient and sent to the lab. Saline lock flushed with 10 mL saline. --00:10 Lyssa Sinclair R.N. 00:20 08/23/2016 Site #2 started via IV in the right forearm with an 18g angiocath, with aseptic technique and good blood return; one attempt. --00:38 Tara Goldberg R.NEnmanuel 00:20 08/23/16. Patient ID band checked for patient name and birthdate: patient confirmed. Blood samples drawn from the right hand with 22g butterfly by nurse ; labeled in presence of the patient and sent to lab: bertrand top; blood culture (1st set). --00:39 Tara Goldberg R.N. 01:00 08/23/2016 Started bag #1 1000 mL IV Fluids IV NS (Saline); at 999 mL/hr over 1 hour(s) via site #1 --01:20 Tara Goldberg R.NEnmanuel 01:15 08/23/16. Patient ID band checked for patient name and birthdate: patient confirmed. Blood samples drawn with syringe and 22g butterfly by nurse per protocol ; labeled in presence of the patient and sent to lab: blood culture (2nd set). --01:19 Tara Goldberg R.NEnmanuel 01:15 08/23/2016 Started bag #1 1000 mL IV Fluids IV NS (Saline); at 999 mL/hr over 1 hour(s) via site #2 via IV pump. Allergies verified and confirmed 5 rights. IV patency established. IV site checked: no pain, redness, or swelling. IV flushed thoroughly pre- and post-medication administration. --01:20 Tara Goldberg R.N. 01:15 08/23/2016 Started 2 gm of Vancomycin IVPB in bag #1 500 mL; at 175 mL/hr over 150 minute(s) via site #2 via IV pump. Allergies verified and confirmed 5 rights. IV patency established. IV site checked: no pain, redness, or swelling. IV flushed thoroughly pre- and post-medication administration. --01:21 Tara Goldberg R.N. 01:23 08/23/16. Cardiac rhythm: sinus tachycardia. --01:23 Tara Goldberg R.N. 01:22 08/23/16. BP: 94/59. HR: 123. RR: 30. O2 saturation: 94% on nasal cannula at 2 liters/minute. Pain level now 12/23. --01:23 Tara Goldberg R.NEnmanuel 01:52 08/23/16. BP: 114/77. HR: 117. RR: 28. O2 saturation: 94%. Pain level now 12/23. --01:52 Tara Goldberg R.N. 01:52 08/23/16. Cardiac rhythm: sinus tachycardia. --01:52 Tara Goldberg R.N. 02:28 08/23/16. Cardiac rhythm: sinus tachycardia. Reassessment after fluids administered and medication administered. She is resting quietly. Overall patient status is the same- she states feels the same. --02:28 Tara Goldberg R.N. 02:50 08/23/16. BP: 154/77. HR: 124. RR: 28. O2 saturation: 95%. Temp: 98.5 F. --03:06 Tara Goldberg R.N. 02:00 08/23/2016 IV Fluids IV NS Discontinued: completed. Total amount infused: 1000 mL. --03:17 Tara Goldberg R.N. 02:15 08/23/2016 IV Fluids IV NS Discontinued: completed. Total amount infused: 1000 mL. IV patency established. IV site checked: no pain, redness, or swelling. IV flushed thoroughly. --03:17 Tara Goldberg R.N. <<STRICKEN ENTRY-- 02:50 08/23/16. BP: 154/77. HR: 124. RR: 28. O2 saturation: 95%. --03:06 Tara Goldberg R.N. --END STRIKE>> Change to Details. --03:20 Tara Goldberg R.N. 02:50 08/23/16. Cardiac rhythm: sinus tachycardia. --03:06 Tara Goldbreg R.N. 03:15 08/23/2016 Started 900 mg of Clindamycin IVPB in bag #1 50 mL; at 200 mL/hr over 30 minute(s) via site #1 via IV pump. Allergies verified and confirmed 5 rights. IV patency established. IV site checked: no pain, redness, or swelling. IV flushed thoroughly pre- and post-medication administration. --03:18 Tara Goldberg R.N. 03:19 08/23/16. ( Patient to be transferred to [facility]). --03:19 Tara Goldberg R.N. 03:30 08/23/2016 Site #3 started via IV in the right hand with an 22g angiocath, with aseptic technique and good blood return; one attempt. Saline lock flushed with 5 mL saline. --03:36 Tara Goldberg R.N. 03:30 08/23/2016 Started 3 gm of Unasyn (Ampicillin-Sulbactam Sodium) IVPB in bag #1 100 mL; at 100 mL/hr over 1 hour(s) via site #3 --03:37 Tara Goldberg R.N. 03:49 08/23/2016 Clindamycin IVPB Discontinued: completed upon transfer. Total amount infused: 50 mL. IV patency established. IV site checked: no pain, redness, or swelling. IV flushed thoroughly. --03:49 Tara Goldberg R.N. 03:49 08/23/2016 Unasyn IVPB Continued: upon transfer at the rate of 100 mL/hr. 75 mL remaining. IV patency established. IV site checked: no pain, redness, or swelling. IV flushed thoroughly. --03:49 Tara Goldberg R.N. 03:50 08/23/2016 Site #[address] upon transfer. --03:50 Tara Goldberg R.NEnmanuel 03:50 08/23/2016 Site #[address] upon discharge. --03:50 Tara Goldberg R.NEnmanuel 03:50 08/23/2016 Site #[address] upon transfer. --03:50 Tara Goldberg R.NEnmanuel 03:50 08/23/2016 Vancomycin IVPB Continued: upon transfer at the rate of 175 mL/hr. 150 mL remaining. IV patency established. IV site checked: no pain, redness, or swelling. IV flushed thoroughly. --03:50 Tara Goldberg R.N. Intake & Output 03:38 08/23/16. IV fluids: 2650. Urine: 100, with return of jamison-colored urine. --03:38 Tara Goldberg R.N. DISPOSITION / DISCHARGE Departure time: 03:52 Aug 23 2016. Transferred to [facility]. Summary of care provided to transport team and transfer facility via paper. Report was given to a nurse in person. Report included patient's care, treatment, medications, reviewed medication reconcilliation, and condition (including any recent changes or anticipated changes). All questions were answered. Report was acknowledged. (EMANUEL Saldivar from transport team). --03:52 Tara Goldberg R.N. 03:51 08/23/16. BP: 100/98. HR: 122. RR: 28. O2 saturation: 95%. Pain level now: 10/23. 03:19 08/23/16. BP: 112/67. HR: 121. RR: 28. O2 saturation: 95%. Pain level now: 10/23. 02:50 08/23/16. BP: 154/77. HR: 124. RR: 28. O2 saturation: 95%. Temp: 98.5 F. 02:27 08/23/16. BP: 110/48. HR: 117. RR: 28. O2 saturation: 95%. 01:51 08/23/16. BP: 114/77. HR: 117. RR: 28. O2 saturation: 94%. Pain level now 12/23. 01:22 08/23/16. BP: 94/59. HR: 123. RR: 30. O2 saturation: 94% on nasal cannula at 2 liters/minute. Pain level now 12/23. 22:54 08/22/16. BP: 118/58. HR: 127. RR: 24. O2 saturation: 95%. Temp: 98.7 F (oral). Pain level now: 10/23. Additional comments: (R) Thigh. --03:52 Tara Goldberg R.N. Locked/Released at 08/23/2016 23:56 by Tara Goldberg R.N.
--- NOTE | 2016-08-23 03:07 | ED ORDER SUMMARY ---
..... Patient: FLASH CRANDALL OrderSheet [facility] VisitID: [id number] [address] [place] [address] 36y, F Registration Date/Time: 08/22/2016 ORDER SHEET Weight: 195.0 kg (stated) Allergies: No Known Drug Allergy GENERAL ORDERS: Other Sports Official (Continuous) (Dizziness when ambulating) (23:08/22/2016 JRomanelli R.N. verbal order read back to Rona BORJA) (23:45 JRomanelli R.N.) CMP Urgent (:08/22/2016 JRomanelli R.N. verbal order read back to Rona BORJA) (Ack 23:08 CHagerty ER Music Coordinator) (0:09 CFalkner R.N.) CBC w Diff Urgent (:08/22/2016 JRomanelli R.N. verbal order read back to Rona BORJA) (Ack 23:08 CHagerty ER Music Coordinator) (0:09 CFalkner R.N.) UA-Culture if indicated Urgent (23:08/22/2016 JRomanelli R.N. verbal order read back to Rona BORJA) (Ack 23:08 CHagerty ER Music Coordinator) (1:19 EInderbitzen R.N.) Oxygen (2 L/min) (NC) (:08/22/2016 JRomanelli R.N. verbal order read back to Rona BORJA) (23:45 JRomanelli R.N.) Pulse oximeter (:08/22/2016 JRomanelli R.N. verbal order read back to Rona BORJA) (23:45 JRomanelli R.N.) EKG - ER Stat (:08/22/2016 JRomanelli R.N. verbal order read back to Rona BORJA) (Ack 23:09 CHagerty ER Music Coordinator) (23:45 JRomanelli R.N.) POC Glucose (:08/22/2016 JRomanelli R.N. verbal order read back to Rona BORJA) (Ack 23:55 CHagerty ER Music Coordinator) (0:09 CFalkner R.N.) Old Records (23:06 08/22/2016 JRomanelli R.N. verbal order read back to Rona BORJA) (Ack 23:55 CHagerty ER Music Coordinator) (3:17 CHagerty ER Music Coordinator) Urine Urgent (23:41 08/22/2016 Tahir BORJA) (Ack 23:55 Rufus ER Music Coordinator) (1:19 EInderbitzen R.N.) BNP Urgent (23:44 08/22/2016 JRomanelli R.N. verbal order read back to Tahir BORJA) (Ack 23:55 Sophieerty ER Music Coordinator) (0:09 CFalkner R.N.) Chest 1V Urgent (00:08 08/23/2016 Tahir BORJA) (Ack 0:16 Rufus ER Music Coordinator) (0:29 Ronald) PCT (Procalcitonin) Urgent (00:19 08/23/2016 EInderbitzen R.N. verbal order read back to Tahir BORJA) (Ack 0:23 Rufus ER Music Coordinator) (0:40 EInderbitzen R.N.) Lactate, Serum Urgent (00:19 08/23/2016 EInderbitzen R.N. verbal order read back to Tahir BORJA) (Ack 0:23 Rufus ER Music Coordinator) (0:40 EInderbitzen R.N.) Amylase Urgent (00:34 08/23/2016 Tahir BORJA) (0:40 EInderbitzen R.N.) Lipase Urgent (00:34 08/23/2016 Tahir BORJA) (0:40 EInderbitzen R.N.) Blood Culture (No) (N/A) Urgent (00:35 08/23/2016 Tahir BORJA) (0:40 EInderbitzen R.N.) US Soft Tissue Anywhere (gangrene) Urgent (00:43 08/23/2016 Tahir BORJA) (Ack 0:45 Rufus ER Music Coordinator) (2:44 Ronald) D-Dimer Urgent (02:55 08/23/2016 Tahir OBRJA) (3:10 EInderbitzen R.N.) (3:11 CHagmarcos ER Music Coordinator) MEDICATION ORDERS: Unasyn IV 3 gm/100mL (NOW) (02:40 08/23/2016 Tahir BORJA) (3:37 EInderbitzen R.N.) IV FLUIDS: IV Saline Lock (23:06 08/22/2016 Jeannie Leyva.NEnmanuel verbal order read back to Rona BORJA) (0:40 EInderbitzen R.N.) IV Saline Lock (00:37 08/23/2016 EInderbitzen R.N. per protocol) (0:38 EInderbitzen R.N.) IV NS : initial bolus 1000 mL (1000 mL/hr), then 1000 mL/hr for X2 (NOW); Urgent (00:42 08/23/2016 Tahir BORJA) (1:20 EInderbitzen R.N.) Vancomycin IV 2 gm/500 mL (NOW) (01:10 08/23/2016 Tahir BORJA) (1:21 EInderbitzen R.N.) Clindamycin IV 900 mg/50mL (NOW) (02:40 08/23/2016 Tahir BORJA) (3:18 EInderbitzen R.N.) ORDER SHEET NOTES: [Electronically signed by Jean Claude Gill MD (07:43 08/23/2016)] [Electronically signed by Tara Goldberg R.N. (23:56 08/23/2016)] [Electronically locked/signed by Tara Goldberg R.N. (23:56 08/23/2016)]
--- NOTE | 2016-08-23 05:52 | DIAGNOSTIC IMAGING REPORT ---
PROCEDURE: XR CHEST 1 VIEW INDICATION: SHORTNESS OF BREATH, initial encounter TECHNIQUE: Portable AP view 12:16 a.m. COMPARISON: Chest x-ray 08/23/2008 FINDINGS: Poor inspiration but lungs are clear. Heart and mediastinum are normal. Thorax is normal. IMPRESSION: 1. Poor inspiration.
--- NOTE | 2016-08-23 07:22 | DIAGNOSTIC IMAGING REPORT ---
PROCEDURE: US SOFT TISSUE ANYWHERE INDICATION: Proximal right medial thigh inflammation TECHNIQUE: Tellez scale ultrasound and color Doppler. COMPARISON: None. FINDINGS: There is subcutaneous edema with areas of subcutaneous gas present in the proximal medial right thigh. IMPRESSION: 1. Proximal medial right thigh subcutaneous edema and gas suggestive of a gas-forming organism and necrotizing fasciitis. 2. Results discussed with Dr. Gill
--- NOTE | 2016-08-23 23:56 | ED MAR SUMMARY ---
..... Medication Administration Record [address] [place] [address] Patient: FLASH CRANDALL Visit ID: [id number] 36y, F Weight: 195.0 kg Height/Length: 67 in BMI: 67.4 ALLERGIES: No Known Drug Allergy Start 01:00 08/23/2016 Tara Goldberg R.N., Stop 02:00 08/23/2016 Tara Goldberg R.NEnmanuel Medication Administered: IV NS (SALINE), Dose: IV Fluids over 1 hour(s), Rate: 999 mL/hr, Dispensed: 1000 mL bag, Site: #1 right AC. Medication Ordered: IV NS : initial bolus 1000 mL (1000 mL/hr), then 1000 mL/hr for X2 (NOW); Urgent. Start 01:15 08/23/2016 Tara Goldberg R.N., Stop 02:15 08/23/2016 Tara Goldberg R.NEnmanuel Medication Administered: IV NS (SALINE), Dose: IV Fluids over 1 hour(s), Rate: 999 mL/hr, Dispensed: 1000 mL bag, Site: #2 right forearm. Medication Ordered: IV NS : initial bolus 1000 mL (1000 mL/hr), then 1000 mL/hr for X2 (NOW); Urgent. Start 01:15 08/23/2016 Tara Goldberg R.NEnmanuel, Continued Upon Transfer 03:50 08/23/2016 Tara Goldberg R.N. Medication Administered: VANCOMYCIN [IVPB], Dose: 2 gm IVPB over 150 minute(s), Rate: 175 mL/hr, Dispensed: 500 mL bag, Site: #2 right forearm. Medication Ordered: Vancomycin IV 2 gm/500 mL (NOW). Start 03:15 08/23/2016 Tara Goldberg R.N., Stop 03:49 08/23/2016 Tara Goldberg R.N. Medication Administered: CLINDAMYCIN [IVPB], Dose: 900 mg IVPB over 30 minute(s), Rate: 200 mL/hr, Dispensed: 50 mL bag, Site: #1 right AC. Medication Ordered: Clindamycin IV 900 mg/50mL (NOW). Start 03:30 08/23/2016 Tara Goldberg R.N., Continued Upon Transfer 03:49 08/23/2016 Tara Goldberg R.N. Medication Administered: UNASYN [IVPB] (AMPICILLIN-SULBACTAM SODIUM), Dose: 3 gm IVPB over 1 hour(s), Rate: 100 mL/hr, Dispensed: 100 mL bag, Site: #3 right hand. Medication Ordered: Unasyn IV 3 gm/100mL (NOW).
--- NOTE | 2016-08-23 23:56 | ED MED RECONCILIATION SUMMARY ---
Patient: FLASH CRANDALL Medication Reconciliation Report [facility] VisitID: [id number] [address] [place] [address] 36y, F Registration Date/Time: 08/22/2016 Weight: 195.0 kg Height/Length: 67 in. BMI: 67.4 ALLERGIES: No Known Drug Allergy The patient's Home Medications are listed below: THE FOLLOWING MEDICATIONS NEED TO BE RECONCILED: Byetta 10 MCG Pen Subcutaneous GlyBURIDE Oral Insulin levamir 15units at night LamoTRIgine Oral 400mg am, 200 mg pm , daily MetFORMIN HCl Oral 1000mg, 2x a day PROzac Oral Ranitidine HCl Oral Synthroid Oral 275mcg, daily Vits The source(s) of the original Home Medication information: Not obtained. The following Medications were given to the patient in the Emergency Department: IV NS IV Fluids bolus 0, then 999 mL/hr, administered: 08/23/2016 1:00:00 AM IV NS IV Fluids bolus 0, then 999 mL/hr, administered: 08/23/2016 1:15:00 AM Vancomycin [IVPB] IVPB bolus 0, then 2 gm 175 mL/hr, administered: 08/23/2016 1:15:00 AM Clindamycin [IVPB] IVPB bolus 0, then 900 mg 200 mL/hr, administered: 08/23/2016 3:15:00 AM Unasyn [IVPB] IVPB bolus 0, then 3 gm 100 mL/hr, administered: 08/23/2016 3:30:00 AM The following Medications were prescribed to the patient: None.
--- NOTE | 2016-08-23 23:56 | ED DISCHARGE INSTRUCTIONS ---
Patient: FLASH CRANDALL General Instructions [facility] VisitID: [id number] [address] [place] [address] 36y, F Registration Date/Time: 08/22/2016 Diabetes. Dyspnea. Sepsis. Acute renal insufficiency. right thigh necrotizing fasciitis. (Electronically signed by Jean Claude Gill MD 08/23/2016 7:43)
--- NOTE | 2016-08-23 23:56 | ED DISCHARGE INSTRUCTIONS ---
Patient: FLASH CRANDALL General Instructions [facility] VisitID: [id number] [address] [place] [address] 36y, F Registration Date/Time: 08/22/2016 Diabetes. Dyspnea. Sepsis. Acute renal insufficiency. right thigh necrotizing fasciitis. (Electronically signed by Jean Claude Gill MD 08/23/2016 7:43)
--- NOTE | 2016-08-23 23:56 | ED MED RECONCILIATION SUMMARY ---
Patient: FLASH CRANDALL Medication Reconciliation Report [facility] VisitID: [id number] [address] [place] [address] 36y, F Registration Date/Time: 08/22/2016 Weight: 195.0 kg Height/Length: 67 in. BMI: 67.4 ALLERGIES: No Known Drug Allergy The patient's Home Medications are listed below: THE FOLLOWING MEDICATIONS NEED TO BE RECONCILED: Byetta 10 MCG Pen Subcutaneous GlyBURIDE Oral Insulin levamir 15units at night LamoTRIgine Oral 400mg am, 200 mg pm , daily MetFORMIN HCl Oral 1000mg, 2x a day PROzac Oral Ranitidine HCl Oral Synthroid Oral 275mcg, daily Vits The source(s) of the original Home Medication information: Not obtained. The following Medications were given to the patient in the Emergency Department: IV NS IV Fluids bolus 0, then 999 mL/hr, administered: 08/23/2016 1:00:00 AM IV NS IV Fluids bolus 0, then 999 mL/hr, administered: 08/23/2016 1:15:00 AM Vancomycin [IVPB] IVPB bolus 0, then 2 gm 175 mL/hr, administered: 08/23/2016 1:15:00 AM Clindamycin [IVPB] IVPB bolus 0, then 900 mg 200 mL/hr, administered: 08/23/2016 3:15:00 AM Unasyn [IVPB] IVPB bolus 0, then 3 gm 100 mL/hr, administered: 08/23/2016 3:30:00 AM The following Medications were prescribed to the patient: None.
--- NOTE | 2016-08-23 23:56 | ED MAR SUMMARY ---
..... Medication Administration Record [facility] [address] [place] [address] Patient: FLASH CRANDALL Visit ID: [id number] 36y, F Weight: 195.0 kg Height/Length: 67 in BMI: 67.4 ALLERGIES: No Known Drug Allergy Start 01:00 08/23/2016 Tara Goldberg R.N., Stop 02:00 08/23/2016 Tara Goldberg R.NEnmanuel Medication Administered: IV NS (SALINE), Dose: IV Fluids over 1 hour(s), Rate: 999 mL/hr, Dispensed: 1000 mL bag, Site: #1 right AC. Medication Ordered: IV NS : initial bolus 1000 mL (1000 mL/hr), then 1000 mL/hr for X2 (NOW); Urgent. Start 01:15 08/23/2016 Tara Goldberg R.N., Stop 02:15 08/23/2016 Tara Goldberg R.NEnmanuel Medication Administered: IV NS (SALINE), Dose: IV Fluids over 1 hour(s), Rate: 999 mL/hr, Dispensed: 1000 mL bag, Site: #2 right forearm. Medication Ordered: IV NS : initial bolus 1000 mL (1000 mL/hr), then 1000 mL/hr for X2 (NOW); Urgent. Start 01:15 08/23/2016 Tara Goldberg R.NEnmanuel, Continued Upon Transfer 03:50 08/23/2016 Tara Goldberg R.N. Medication Administered: VANCOMYCIN [IVPB], Dose: 2 gm IVPB over 150 minute(s), Rate: 175 mL/hr, Dispensed: 500 mL bag, Site: #2 right forearm. Medication Ordered: Vancomycin IV 2 gm/500 mL (NOW). Start 03:15 08/23/2016 Tara Goldberg R.N., Stop 03:49 08/23/2016 Tara Goldberg R.N. Medication Administered: CLINDAMYCIN [IVPB], Dose: 900 mg IVPB over 30 minute(s), Rate: 200 mL/hr, Dispensed: 50 mL bag, Site: #1 right AC. Medication Ordered: Clindamycin IV 900 mg/50mL (NOW). Start 03:30 08/23/2016 Tara Goldberg R.N., Continued Upon Transfer 03:49 08/23/2016 Tara Goldberg R.N. Medication Administered: UNASYN [IVPB] (AMPICILLIN-SULBACTAM SODIUM), Dose: 3 gm IVPB over 1 hour(s), Rate: 100 mL/hr, Dispensed: 100 mL bag, Site: #3 right hand. Medication Ordered: Unasyn IV 3 gm/100mL (NOW).
== END 2016-08-23 04:15 | disposition home or self-care (01) ==
LOC: ED SRH 22:47
DX: A41.9 Sepsis, unspecified organism (principal); M72.6 Necrotizing fasciitis; N28.9 Disorder of kidney and ureter, unspecified; R06.00 Dyspnea, unspecified; E11.9 Type 2 diabetes mellitus without complications; Z79.899 Other long term (current) drug therapy; Z79.84 Long term (current) use of oral hypoglycemic drugs; Z79.4 Long term (current) use of insulin; Z87.891 Personal history of nicotine dependence